=== PATIENT | male | born 1940 | race Caucasian/White ===

== ENCOUNTER → 2017-12-20 | Outpatient (CLI) | payer BC | END | disposition home or self-care (01) | LOC: C.LABOAKS 17:33 | PROVIDERS: ATTEND Nurse Practitioner | DX: E55.9 Vitamin D deficiency, unspecified (principal) ==

== ENCOUNTER → 2018-01-10 | Outpatient (CLI) | payer BC ==
[2018-01-10 13:15] LABS: BLOOD UREA NITROGEN 30 mg/dl (7-18); CALCIUM 9.2 mg/dl (8.5-10.1); CARBON DIOXIDE 28 mmol/L (21-32); CREATININE 1.64 mg/dl (0.60-1.40); GLUCOSE 118 mg/dl (70-99); POTASSIUM 4.5 mmol/L (3.5-5.1); SODIUM 139 mmol/L (136-145)
== END | disposition home or self-care (01) ==
LOC: C.LABOAKS 18:02
PROVIDERS: ATTEND Nurse Practitioner
DX: I10 Essential (primary) hypertension (principal)

== ENCOUNTER → 2018-03-28 | Outpatient (CLI) | payer BC ==
--- NOTE | 2018-03-28 10:38 | DIAGNOSTIC IMAGING REPORT ---
RENAL ULTRASOUND CLINICAL HISTORY: Renal vascular hypertension. Renal insufficiency. COMPARISON STUDY: None. TECHNIQUE: Sonography of the kidneys and the urinary bladder was performed. FINDINGS: Please note that the Doppler ultrasound will be reported separately. Exam is mildly compromised by suboptimal penetration. The right kidney measures 12.6 cm and the left measures 11 cm per there is a 1.1 cm right renal cyst. There is no hydronephrosis. No calculi or solid masses are identified by sonography. Neither ureteral jet was identified. IMPRESSION: 1. No hydronephrosis. 2. Minimal renal cortical thinning. Electronically signed by: Tirso Daugherty M.D. 03/28/2018 10:37 AM Dictated Date/Time: 03/28/2018 10:35 AM
--- NOTE | 2018-03-28 10:44 | DIAGNOSTIC IMAGING REPORT ---
DOPPLER ULTRASOUND OF THE RENAL ARTERIES CLINICAL HISTORY: Renovascular hypertension. COMPARISON STUDY: Renal ultrasound dated 03/28/2018. TECHNIQUE: Doppler sonography of the renal arteries was performed to assess renal artery stenosis. Images are reviewed in the transverse and longitudinal planes. FINDINGS: The kidneys appear normal in size and echotexture. There is no hydronephrosis. On the right, intrarenal arterial resistive indices range from 0.50 to 0.72. Intrarenal arterial waveforms are normal with brisk upstrokes. The right renal arterial waveform is normal, and velocities within the right renal artery measure up to 72 cm/sec. The right renal vein is patent. On the left, intrarenal arterial resistive indices measure 1.0. Intrarenal arterial waveforms are normal with brisk upstrokes. The left renal arterial waveform is normal, and velocities within the left renal artery measure up to 134 cm/sec. The left renal vein is patent. The abdominal aorta is patent. Velocities within the abdominal aorta measure up to 119 cm/s. IMPRESSION: 1. There are no elevated velocities identified within the renal arteries to suggest renal artery stenosis. 2. There are elevated resistive indices identified in the left kidney as compared to the right. This is of indeterminant significance and may be artifactual, or could be seen in the setting of medical renal disease. Clinical correlation will be required. Electronically signed by: Maico Yee M.D. 03/28/2018 10:42 AM Dictated Date/Time: 03/28/2018 10:39 AM
== END | disposition home or self-care (01) ==
LOC: C.ULTR 09:18
PROVIDERS: ATTEND Internal Medicine Critical Care Medicine
DX: I15.0 Renovascular hypertension (principal); N28.9 Disorder of kidney and ureter, unspecified

== ENCOUNTER → 2018-04-04 | Outpatient (CLI) | payer BC ==
[2018-04-04 13:06] LABS: BASO % 0.6 %; BASO ABS # 0.04 K/uL (0-0.2); EOS % 3.4 %; EOS ABS # 0.25 K/uL (0-0.5); HEMATOCRIT 42.5 % (42-52); HEMOGLOBIN 14.5 g/dL (14.0-18.0); IG# 0.03 K/uL (0.00-0.02); LYMPH % 27.4 %; LYMPH ABS # 1.99 K/uL (1.2-3.4); MEAN CELL VOLUME 90.4 fL (80-100); MEAN CORPUSCULAR HEMOGLOBIN 30.9 pg (25-34); MEAN CORPUSCULAR HGB CONC 34.1 g/dl (32-36); MEAN PLATELET VOLUME 8.8 fL (7.4-10.4); MONO % 10.9 %; MONO ABS # 0.79 K/uL (0.11-0.59); NEUT % 57.3 %; NEUT ABS # 4.17 K/uL (1.4-6.5); PLATELET COUNT 215 K/uL (130-400); RED CELL DISTRIBUTION WIDTH CV 13.6 % (11.5-14.5); RED CELL DISTRIBUTION WIDTH SD 44.8 fL (36.4-46.3); WHITE BLOOD COUNT 7.27 K/uL (4.8-10.8)
[2018-04-04 13:38] LABS: HEMOGLOBIN A1C 5.9 % (4.5-5.6)
[2018-04-04 14:34] LABS: ALBUMIN 3.8 gm/dl (3.4-5.0); ALKALINE PHOSPHATASE 66 U/L (45-117); ALT/SGPT 32 U/L (12-78); AST/SGOT 23 U/L (15-37); BLOOD UREA NITROGEN 31 mg/dl (7-18); CALCIUM 8.7 mg/dl (8.5-10.1); CARBON DIOXIDE 24 mmol/L (21-32); CREATININE 1.61 mg/dl (0.60-1.40); GLUCOSE 99 mg/dl (70-99); POTASSIUM 4.4 mmol/L (3.5-5.1); SODIUM 137 mmol/L (136-145); TOTAL PROTEIN 7.8 gm/dl (6.4-8.2)
== END | disposition home or self-care (01) ==
LOC: C.LABOAKS 16:44
PROVIDERS: ATTEND Internal Medicine Critical Care Medicine
DX: E03.9 Hypothyroidism, unspecified (principal); E11.9 Type 2 diabetes mellitus without complications; I10 Essential (primary) hypertension; N28.9 Disorder of kidney and ureter, unspecified; D64.9 Anemia, unspecified

== ENCOUNTER 2024-01-24 12:27 | Observation (INO) ==
--- NOTE | 2024-01-24 13:06 | Emergency Department Note ---
Impression & Plan Precordial chest pain, Exertional chest pain, History of coronary artery disease, CRF (chronic renal failure) ED Provider Note NAME: JOSELITO TOURE AGE: 83 SEX: M : 1940 ARRIVES VIA: Ambulance INFORMANT: [Patient][family] ED PROVIDER(S): [Maico Cordova MD] CHIEF COMPLAINT: Cardiac assessment HISTORY OF PRESENT ILLNESS: The patient is an 83-year-old male who states that he has had ongoing issues with chest pressure. He was seen by cardiology over the last few years and was told that he has some minor blockages that did not require stenting or any type of cardiac surgery. The patient states that in the last 3 days, his symptoms have seemed worse. Any exertion causes him to feel discomfort across the chest. He feels fatigued. He has to sit down to feel better. The pain seems to resolve with rest. The patient denies sweating or pain radiation, there has been no shortness of breath. No cough or congestion. No fever. The patient states that he has in addition noticed some reflux symptoms and heartburn symptoms for the last 3 days, the heartburn seems constant. He has tried Nexium without relief. Because of his ongoing symptoms, he presents for evaluation. In route to the hospital, he was given 4 baby aspirin. He is currently asymptomatic. PMHx/PSHx/Social Hx: See Below PHYSICAL EXAM: GENERAL: Patient is in no acute distress. HEENT: No acute trauma, normocephalic atraumatic, mucous membranes moist, no nasal congestion. NECK: No stridor, no adenopathy, no meningismus, trachea is midline. LUNGS: Clear to auscultation bilaterally, no wheeze, no rhonchi, breath sounds equal. HEART: Without murmurs gallops or rubs, regular rate and rhythm. ABDOMEN: Soft, nontender, no peritonitis. EXTREMITIES: No cyanosis, full range of motion of all the joints without pain or difficulty. NEUROLOGIC: Oriented x 3, no acute motor or sensory deficits, no focal weakness. SKIN: No jaundice, no diaphoresis. DIFFERENTIAL DIAGNOSIS: Angina, NC, anemia, musculoskeletal pain, reflux, esophagitis, ulcer, among others. EMERGENCY DEPARTMENT PROCEDURES: MEDICAL DECISION MAKING: There is no leukocytosis. A very mild anemia was seen. There was a normal platelet count. No coagulopathy. There was renal insufficiency present but this appears baseline. No electrolyte abnormality in need of emergent correction. No concerning liver enzyme elevation. ECG showed a sinus rhythm with a first-degree AV block, no ST elevation. Cardiac enzyme testing x 1 is not consistent with acute cardiac injury. Chest x-ray did not show CHF or pneumonia. BNP was not elevated making CHF less likely. On exam, the patient was without complaints. His symptoms had resolved. He had received aspirin prior to arrival. The patient presents with exertional chest pain. He has presumed coronary disease and in the past has had an abnormal stress test. I do think the patient would be best served with a hospital stay and further cardiac workup. I did speak with cardiology. I did speak with the patient and his family at length. Case management and the on-call hospitalist were consulted. Prior/Outside records/notes reviewed: Today's EMS notes describing his presentation and transport to this hospital. ECG per my interpretation: Indication was chest pain. The ECG shows a sinus rhythm with a first-degree AV block. The rate is 63. PVCs are seen. There is no acute ST elevation. There is some nonspecific ST change. QTc was 403. Continuous Cardiac Monitoring per my interpretation: An order was placed for continuous cardiac monitoring. The monitor shows a rate of 67 with sinus rhythm with a first-degree block. Imaging/x-ray results per my interpretation: Chest x-ray shows cardiomegaly, no CHF or pneumonia or pneumothorax. Chronic Medical/Social conditions affecting care: Advanced age. Care/Management discussed with: Case management, the on-call hospitalist. [facility] cardiology- Dr. Camacho. Level of care consideration(s): After review of the information above and other included data: --I believe the patient requires escalation of care to admission DISPOSITION: Admission Past Med/Surg History Problem List PAC (premature atrial contraction) Fatigue Fecal incontinence Trochanteric bursitis, right hip CAD (coronary artery disease) Abnormal stress echocardiogram Chest heaviness Trochanteric bursitis, left hip Bilateral lumbar radiculopathy Degenerative disc disease, lumbar Sensorineural hearing loss (SNHL) of both ears COVID-19 virus antibody negative (Acute) Leg pain Right hip pain Lumbar facet joint syndrome (Chronic) Rotator cuff arthropathy of left shoulder (Chronic) Mild heartburn (Chronic) occassional Vitamin D deficiency Hyperlipidemia Hypertension Secondary hyperparathyroidism of renal origin 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 Helton Medical History PAC (premature atrial contraction) follows with Luiz Alvarado Anxiety and depression History of prostate cancer sx Acid reflux Sensorineural hearing loss (SNHL) of both ears Lumbar stenosis with neurogenic claudication Hypoglycemia no diabetes Osteoarthritis Hypothyroidism Sleep apnea CPAP Surgical History History of incision and drainage (~07/06/18) H/O shoulder surgery Hx of tonsillectomy History of colostomy reversal History of colostomy History of bilateral knee arthroplasty History of arthroplasty Hx of colonoscopy Hx of prostatectomy Family History Daughter Family history of diabetes mellitus Other No family history of adverse response to anesthesia Social History Smoking Status: Never smoker Second Hand Exposure: No; Do You Dip or Chew Tobacco: No; Hx Alcohol Use: Yes Alcohol type: beer Hx Substance Use: No Preferred Language: Irish Communication Ability: Effective Visual Impairment: Limited Hearing Ability: Normal Chip Washer Required: No Beliefs That Will Affect Care: None marital status: Current Living Situation: Spouse Feels Safe at Home: Yes Assistive Devices: CPAP, Denture - Upper, Denture - Lower and Glasses Allergies Allergies Allergy/AdvReac Type Severity Reaction Status Date / Time MARILEE Inhibitors AdvReac Mild cough Verified 01/24/24 14:23 Home Meds Home Medications Medication Instructions Recorded Confirmed atorvastatin 20 mg tablet (Lipitor) 20 mg PO QPM 05/15/18 01/24/24 donepezil 10 mg tablet (Aricept) 10 mg PO HS 05/15/18 01/24/24 esomeprazole magnesium 20 mg 20 mg PO DAILY PRN Heartburn 05/15/18 01/24/24 capsule,delayed release (Nexium) levothyroxine 50 mcg tablet 50 mcg PO QAM 05/15/18 01/24/24 (Synthroid) aspirin 81 mg tablet,delayed 81 mg PO QPM 06/03/21 06/04/24 release acetaminophen 500 mg tablet 1,000 mg PO QID PRN Pain 04/14/22 01/24/24 (Tylenol Extra Strength) amlodipine 5 mg tablet 7.5 mg PO QAM 09/09/22 01/24/24 fluoxetine 40 mg capsule 40 mg PO DAILY 01/10/24 01/24/24 cholecalciferol (vitamin D3) 125 125 mcg PO 3XWK 01/24/24 01/24/24 mcg (5,000 unit) tablet (Vitamin D3) meloxicam 15 mg tablet 15 mg PO QPM 01/24/24 01/24/24 Previous Rx's Medication Instructions Recorded losartan 100 mg tablet 100 mg PO QPM #90 tabs 06/22/21 nitroglycerin 0.4 mg sublingual 0.4 mg sublingual Q5M PRN chest 03/22/22 tablet (Nitrostat) pain #25 tabs Results & Data (ED) Vital Signs Vital Signs - 24 hr 01/24/24 11:57 01/24/24 12:37 01/24/24 12:49 Temperature 36.6 C Temperature Source Oral Pulse Rate 67 Respiratory Rate 14 Respiratory Depth Normal Blood Pressure 148/65 H Blood Pressure Mean 92 Pulse Oximetry 97 96 Oxygen Delivery Method Room Air Room Air Sepsis Recent Fever Within 48 Hours No Sepsis New/Unexplained Change in Mental Status N/A Sepsis Action Taken by Nursing No Action Required 01/24/24 13:08 Temperature Temperature Source Pulse Rate 61 Respiratory Rate Respiratory Depth Blood Pressure Blood Pressure Mean Pulse Oximetry Oxygen Delivery Method Sepsis Recent Fever Within 48 Hours Sepsis New/Unexplained Change in Mental Status Sepsis Action Taken by [facility] Medications Current Medication List: was personally reviewed by me Laboratory Data Attestation: I reviewed the patient's lab results. 01/24/24 12:44 01/24/24 12:44 Lab Results 01/24/24 Range/Units 12:44 WBC 9.93 (4.8-10.8) K/ul RBC 4.41 L (4.70-6.10) M/uL Hgb 13.2 L (14.0-18.0) g/dl Hct 39.2 L (42.0-52.0) % MCV 88.9 (80.0-100.0) fL MCH 29.9 (25.0-34.0) pg MCHC 33.7 (32.0-36.0) g/dL RDW Std Deviation 43.3 (36.4-46.3) fL RDW Coeff of Heather 13.3 (11.5-14.5) % Plt Count 234 (130-400) K/uL MPV 8.5 L (9.4-12.4) fL Immature Gran % (Auto) 0.4 % Neut % (Auto) 70.1 % Lymph % (Auto) 16.7 % [place] % (Auto) 10.2 % Eos % (Auto) 1.8 % Baso % (Auto) 0.8 % Neut # (Auto) 6.96 H (1.40-6.50) K/uL Lymph # (Auto) 1.66 (1.20-3.40) K/uL [place] # (Auto) 1.01 H (0.11-0.59) K/uL Eos # (Auto) 0.18 (0.00-0.50) K/uL Baso # (Auto) 0.08 (0.00-0.20) K/uL Immature Gran # (Auto) 0.04 (0.01-0.20) K/uL PT 10.7 (9.0-12.0) Seconds INR 1.0 (0.9-1.1) APTT 25 (21-31) Seconds PTT Ratio 0.9 Sodium 135 L (136-145) mmol/L Potassium 4.7 (3.5-5.1) mmol/L Chloride 106 (98-107) mmol/L Carbon Dioxide 22 (21-32) mmol/L Anion Gap 7 (3-11) BUN 31 H (6-23) mg/dl Creatinine 1.71 H (0.6-1.4) mg/dl Est Cr Clr Drug Dosing 30.9 ml/min Est GFR ( Amer) 41.4 ml/min Est GFR (Non-Af Amer) 35.7 ml/min BUN/Creatinine Ratio 18.1 (10-20) Glucose 108 H (70-99(Fasting)) mg/dl Calcium 9.3 (8.6-10.3) mg/dl Magnesium 1.9 (1.7-2.4) mg/dl Total Bilirubin 0.3 (0.2-1.0) mg/dl AST 22 (13-39) U/L ALT 21 (7-52) U/L Alkaline Phosphatase 53 (34-104) U/L Troponin I High Sens 17.8 (0-20) pg/ml B-Natriuretic Peptide 79 (0-100) pg/ml Total Protein 7.1 (6.0-8.3) gm/dl Albumin 4.2 (3.4-5.0) gm/dl Globulin 2.9 (2.5-4.0) gm/dl Albumin/Globulin Ratio 1.4 (0.9-2) Imaging Data Radiologist's Impression: Chest X-Ray 01/24/24 12:46 XR chest 1V portable HISTORY: Dyspnea COMPARISON: Chest 06/17/2022. FINDINGS: No pneumothorax. No pleural effusions. No focal lung consolidations to suggest a pneumonia. No evidence for pulmonary edema. The heart remains mildly enlarged. Calcifications within the aortic knob. Bilateral total shoulder arthroplasties again noted. IMPRESSION: No significant change compared to the prior study. No acute process. ACT 112: Negative or not required by law. Electronically signed by: Jono Contreras M.D. 01/24/2024 1:45 PM Discharge Plan Visit Data Chief Complaint: Cardiac Assessment Stated Complaint: CHEST PAIN ED Provider: Maico Cordova Discharge Problem: Precordial chest pain, Exertional chest pain, History of coronary artery disease, CRF (chronic renal failure) Patient Disposition: Admitted As Inpatient Condition: Good Forms Stand Alone Forms: My [facility] [place] Prescriptions Prescriptions: No Action losartan 100 mg tablet 100 mg PO QPM Qty: 90 3RF acetaminophen [Tylenol Extra Strength] 500 mg tablet 1,000 mg PO QID PRN (Reason: Pain) nitroglycerin [Nitrostat] 0.4 mg tablet, sublingual 0.4 mg sublingual Q5M PRN (Reason: chest pain) Qty: 25 3RF Rx Instructions: Place 1 tablet sublingually every 5 minutes as needed for chest pain. If chest pain does not resolve by the 3rd dose, call 911. amlodipine 5 mg tablet 7.5 mg PO QAM fluoxetine 40 mg capsule 40 mg PO DAILY atorvastatin [Lipitor] 20 mg Tablet 20 mg PO QPM donepezil [Aricept] 10 mg Tablet 10 mg PO HS levothyroxine [Synthroid] 50 mcg Tablet 50 mcg PO QAM esomeprazole magnesium [Nexium] 20 mg Capsule,Delayed Release(Dr/Ec) 20 mg PO DAILY PRN (Reason: Heartburn) aspirin 81 mg Tablet,Delayed Release (Dr/Ec) 81 mg PO QPM meloxicam 15 mg tablet 15 mg PO QPM cholecalciferol (vitamin D3) [Vitamin D3] 125 mcg (5,000 unit) Tablet 125 mcg PO 3XWK Rx Instructions: Mon/Wed/Fri Referrals Referrals: Reed Gaitan MD [Primary Care Provider] - Discharge Problem: CRF (chronic renal failure) Qualifiers: Chronic kidney disease stage: unspecified stage Qualified Code(s): N18.9 - Chronic kidney disease, unspecified
[2024-01-24 13:16] LABS: Basophils # (auto) 0.08 K/uL (0.00-0.20); Basophils % (auto) 0.8 %; Eosinophils # (auto) 0.18 K/uL (0.00-0.50); Eosinophils % (auto) 1.8 %; Hematocrit (blood only) 39.2 % (42.0-52.0); Hemoglobin 13.2 g/dl (14.0-18.0); Immature Granulocytes # (auto) 0.04 K/uL (0.01-0.20); Immature Granulocytes % (auto) 0.4 %; Lymphocytes # (auto) 1.66 K/uL (1.20-3.40); Lymphocytes % (auto) 16.7 %; Mean Corpuscular Hemoglobin 29.9 pg (25.0-34.0); Mean Corpuscular Hgb Conc 33.7 g/dL (32.0-36.0); Mean Corpuscular Volume 88.9 fL (80.0-100.0); Mean Platelet Volume 8.5 fL (9.4-12.4); Monocytes # (auto) 1.01 K/uL (0.11-0.59); Monocytes % (auto) 10.2 %; Neutrophils # (auto) 6.96 K/uL (1.40-6.50); Neutrophils % (auto) 70.1 %; Platelet Count 234 K/uL (130-400); RDW Coefficient of Variation 13.3 % (11.5-14.5); RDW Standard Deviation 43.3 fL (36.4-46.3); Red Blood Count 4.41 M/uL (4.70-6.10); White Blood Count 9.93 K/ul (4.8-10.8)
[2024-01-24 13:25] LABS: Albumin Globulin Ratio 1.4 (0.9-2); Albumin Level 4.2 gm/dl (3.4-5.0); BUN Creatinine Ratio 18.1 (10-20); Bilirubin,Total 0.3 mg/dl (0.2-1.0); Calcium 9.3 mg/dl (8.6-10.3); Creatinine Clr Calc Pharmacy 30.9 ml/min; Est GFR (African American) 41.4 ml/min; Est GFR (Non-African American) 35.7 ml/min; Globulin 2.9 gm/dl (2.5-4.0); Magnesium 1.9 mg/dl (1.7-2.4); Potassium 4.7 mmol/L (3.5-5.1); Total Protein 7.1 gm/dl (6.0-8.3)
[2024-01-24 13:30] LABS: Partial Thromboplastin Ratio 0.9; Partial Thromboplastin Time 25 Seconds (21-31); Prothrombin Time 10.7 Seconds (9.0-12.0); Troponin I High Sensitivity 17.8 pg/ml (0-20)
--- NOTE | 2024-01-24 13:46 | XRay Report ---
XR chest 1V portable HISTORY: Dyspnea COMPARISON: Chest 06/17/2022. FINDINGS: No pneumothorax. No pleural effusions. No focal lung consolidations to suggest a pneumonia. No evidence for pulmonary edema. The heart remains mildly enlarged. Calcifications within the aortic knob. Bilateral total shoulder arthroplasties again noted. IMPRESSION: No significant change compared to the prior study. No acute process. ACT 112: Negative or not required by law. Electronically signed by: Jono Contreras M.D. 01/24/2024 1:45 PM
--- NOTE | 2024-01-24 14:23 | History & Physical Report ---
Date of Service January 24, 2024 Assessment & Plan (1) Unstable angina: Plan: Ongoing exertional chest pressure, with an acute exacerbation x 3 days Troponin WNL x 2 ECG revealed sinus rhythm with first-degree AV block at 60 bpm Continue aspirin daily Would discuss with patient about reintroducing beta-newton Continuous telemetry monitoring Hx of abnormal stress echocardiogram in 2021 Cardiology consulted for potential catheterization A.m. CBC, BMP, mag (2) Stage 3b chronic kidney disease: Plan: BUN 31, creatinine 1.71 (1.61), EGFR 35.7 on arrival Patient was recently started on meloxicam for gout related pain; will hold for now Hold losartan given CrCl ~30; okay to restart pending a.m. BMP/BP (3) Hypertension: Plan: Continue amlodipine Hold losartan (4) Hyperlipidemia: Plan: Continue atorvastatin (5) Mild heartburn: Plan: Continue Nexium or pantoprazole equivalent as needed (6) Sleep apnea: Plan: CPAP at bedtime Plan [facility]: [facility] Full [facility] Heart healthy diet VTE PPx: SCDs (hold chemical DVT PPx in the setting of potential cath) History of Present Illness Chief Complaint: Cardiac Assessment Primary Care Provider: Reed Gaitan MD Cristian is an 83-year-old male with PMH of HTN, HLD, stage III CKD, secondary hyperparathyroidism of renal origin, PACs, CAD, and abnormal stress echocardiogram. He presented for an acute worsening of chest pressure, anxiety, and heartburn x 3 days. Patient reports that this exertional chest heaviness has been ongoing for a long period of time, but was acutely exacerbated and worsening since Sunday 01/21. It is now occurring with any sort of activity; previously was occurring with going up steps and long walks, but then started to occur while doing simple tasks such as making breakfast or washing dishes. Patient denies SOB and chest pain, but describes it as discomfort; a "heaviness"/"fullness". No radiation to the back, shoulders, or arms. The heaviness is mainly substernal with some radiation towards the throat. Sitting down alleviates the chest pressure within a couple minutes. Patient also notes that he has been having worse indigestion recently, but he tried taking Nexium the past couple days and this did not help. He denies that the pressure is positional, he notes it feels better when he sits upright. Associated symptoms include increased anxiety and feeling unsteady on his feet. Patient took all of his regular morning medications today; the only recent change in medication was that he recently started meloxicam 50 mg after dinner for pain associated with gout. No PMH of LA, CVA, or cardiac history. Patient was previously on beta- blockers (Bystolic) but this was stopped due to side effects. No falls, fainting, or recent injury/trauma to the chest wall. Patient uses a cane occasionally for ambulation. He denies smoking, tobacco use, and alcohol use. Patient is mildly hypertensive at 148/65 at time of admission; vitals otherwise stable. ED Course: ASA 324mg en route ROS: Patient endorses unsteady on feet, and exertional chest pressure (feeling of "fullness"). Patient denies fever, chills, night-sweats, dizziness, lightheadedness, LOBO, changes in vision, chest pain, chest palpaitations, SOB at rest or with exertion, pleuritic CP, cough, abdominal pain, N/V/D, changes in urinary or bowel habits, or N/T/pain in the arms or legs. Allergies Allergy/AdvReac Type Severity Reaction Status Date / Time MARILEE Inhibitors AdvReac Mild cough Verified 01/24/24 14:23 Home Medications Medication Instructions Recorded Confirmed Type atorvastatin 20 mg tablet (Lipitor) 20 mg PO QPM 05/15/18 01/24/24 History donepezil 10 mg tablet (Aricept) 10 mg PO HS 05/15/18 01/24/24 History esomeprazole magnesium 20 mg 20 mg PO DAILY PRN Heartburn 05/15/18 01/24/24 Hi story capsule,delayed release (Nexium) levothyroxine 50 mcg tablet 50 mcg PO QAM 05/15/18 01/24/24 History (Synthroid) aspirin 81 mg tablet,delayed 81 mg PO QPM 01/22/21 01/24/24 History release losartan 100 mg tablet 100 mg PO QPM #90 tabs 06/22/21 01/24/24 Rx nitroglycerin 0.4 mg sublingual 0.4 mg sublingual Q5M PRN chest 03/22/22 01/24/24 Rx tablet (Nitrostat) pain #25 tabs acetaminophen 500 mg tablet 1,000 mg PO QID PRN Pain 04/14/22 01/24/24 History (Tylenol Extra Strength) amlodipine 5 mg tablet 7.5 mg PO QAM 09/09/22 01/24/24 History fluoxetine 40 mg capsule 40 mg PO DAILY 01/10/24 01/24/24 History cholecalciferol (vitamin D3) 125 125 mcg PO 3XWK 01/24/24 01/24/24 History mcg (5,000 unit) tablet (Vitamin D3) meloxicam 15 mg tablet 15 mg PO QPM 01/24/24 01/24/24 History Past Med/Surg History Problem List (Updated 01/24/24 @ 15:18 by Jono Olsen PA-C) Sleep apnea CPAP Unstable angina PAC (premature atrial contraction) Fatigue Fecal incontinence Trochanteric bursitis, right hip CAD (coronary artery disease) Abnormal stress echocardiogram Chest heaviness Trochanteric bursitis, left hip Bilateral lumbar radiculopathy Degenerative disc disease, lumbar Sensorineural hearing loss (SNHL) of both ears COVID-19 virus antibody negative (Acute) Leg pain Right hip pain Lumbar facet joint syndrome (Chronic) Rotator cuff arthropathy of left shoulder (Chronic) Mild heartburn (Chronic) occassional Vitamin D deficiency Hyperlipidemia Hypertension Secondary hyperparathyroidism of renal origin 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 Helton Medical History PAC (premature atrial contraction) follows with Luiz Alvarado Anxiety and depression History of prostate cancer sx Acid reflux Sensorineural hearing loss (SNHL) of both ears Lumbar stenosis with neurogenic claudication Hypoglycemia no diabetes Osteoarthritis Hypothyroidism Sleep apnea CPAP Surgical History History of incision and drainage (~07/06/18) H/O shoulder surgery Hx of tonsillectomy History of colostomy reversal History of colostomy History of bilateral knee arthroplasty History of arthroplasty Hx of colonoscopy Hx of prostatectomy Family History Daughter Family history of diabetes mellitus Other No family history of adverse response to anesthesia Social History Smoking Status: Never smoker Second Hand Exposure: No; Do You Dip or Chew Tobacco: No; Hx Alcohol Use: Yes Alcohol type: beer Hx Substance Use: No Preferred Language: Maltese Communication Ability: Effective Visual Impairment: Limited Hearing Ability: Normal Inspector Plug Seam Required: No Beliefs That Will Affect Care: None marital status: Current Living Situation: Spouse Feels Safe at Home: Yes Assistive Devices: CPAP, Denture - Upper, Denture - Lower and Glasses Review of Systems Review of Systems: See HPI above Physical Exam Physical Exam: General: no acute distress; pleasant affect; anxious; non-toxic appearing; well- nourished; cooperative; SpO2 96% on RA HEENT: normocephalic, atraumatic; no scleral icterus; PERRLA; moist mucus membrane; vision and hearing grossly intact Neck: supple; no lymphadenopathy; trachea midline Skin: warm, dry without signs of tenting; no cyanosis; no rashes, bruising, lesions, or erythema noted CV: chest wall NTP; RRR; S1/S2 normal; no murmurs/rubs/gallops; pulses intact and symmetric at radial, DP, and PT Lungs: no acute respiratory distress; symmetrical chest wall expansion; clear breath sounds across all lung rodríguez w/o adventitious sounds; no wheezing ABD: Soft, NTP; BS present; no rebound/guarding; no distention MSK: no tics or fasciculations; no edema noted in the LEs b/l, nonerythematous Neuro: A&Ox3; normal mood and affect; fluent speech; no focal deficits; sensation grossly intact in the LEs b/l Results & Data Results & Data Vital Signs (Past 12 Hours) Vital Signs Temp Pulse Resp BP Pulse Ox O2 Del Method 01/24/24 13:08 61 01/24/24 12:49 96 Room Air 01/24/24 12:37 148/65 H 01/24/24 11:57 36.6 C 67 14 97 Room Air Laboratory Results Abnormal lab results 01/24/24 Range/Units 12:44 RBC 4.41 L (4.70-6.10) M/uL Hgb 13.2 L (14.0-18.0) g/dl Hct 39.2 L (42.0-52.0) % MPV 8.5 L (9.4-12.4) fL Neut # (Auto) 6.96 H (1.40-6.50) K/uL Davidson # (Auto) 1.01 H (0.11-0.59) K/uL Sodium 135 L (136-145) mmol/L BUN 31 H (6-23) mg/dl Creatinine 1.71 H (0.6-1.4) mg/dl Glucose 108 H (70-99(Fasting)) mg/dl Diagnostic Findings Chest X-Ray 01/24/24 12:46 XR chest 1V portable HISTORY: Dyspnea COMPARISON: Chest 06/17/2022. FINDINGS: No pneumothorax. No pleural effusions. No focal lung consolidations to suggest a pneumonia. No evidence for pulmonary edema. The heart remains mildly enlarged. Calcifications within the aortic knob. Bilateral total shoulder arthroplasties again noted. IMPRESSION: No significant change compared to the prior study. No acute process. ACT 112: Negative or not required by law. Electronically signed by: Jono oCntreras M.D. 01/24/2024 1:45 PM ECG Additional Comments: ECG revealed sinus rhythm with first-degree AV block with occasional PVCs at 63 bpm; QTc 403 Code Status & VTE Plan Code Status Full code VTE Prophylaxis Plan VTE Prophylaxis will be ordered: Yes PG Care Time/CCT Total # of Minutes Spent Total Time Spent with Patient: Total time spent is greater than 50% in coordination of care (as documented) at patient's floor/unit and/or counseling patient: Coding [place] [address] INT INP/OBS CARE 3/75MIN Patient Type Established Medical Decision Making High Complexity Diagnoses Unstable angina I20.0 Stage 3b chronic kidney disease N18.32 Hypertension, unspecified type I10 Hypertension type: unspecified Mixed hyperlipidemia E78.2 Hyperlipidemia type: mixed hyperlipidemia Mild heartburn R12 Sleep apnea G47.30 (3) Hypertension Hypertension type: unspecified Qualified Code(s): I10 - Essential (primary) hypertension (4) Hyperlipidemia Hyperlipidemia type: mixed hyperlipidemia Qualified Code(s): E78.2 - Mixed hyperlipidemia
[2024-01-24] MEDS ORDERED: PANTOprazole 40 MG TAB PO PRN (17:07)
[2024-01-24] MEDS ORDERED: MELATONIN 3 MG TAB PO PRN (17:07)
[2024-01-24] MEDS: DONEPEZIL HCL 10 MG TAB PO SCH (20:22)
[2024-01-24] MEDS: ATORVASTATIN 20 MG TAB PO SCH (20:22)
[2024-01-24] MEDS: ASPIRIN 81 MG ECTAB PO SCH (20:22)
[2024-01-24] MEDS: ACETAMINOPHEN 325 MG TAB PO PRN (21:20)
[2024-01-25] MEDS: LEVOTHYROXINE SODIUM 50 MCG TABLET PO SCH (06:05)
[2024-01-25 07:50] LABS: Basophils # (auto) 0.06 K/uL (0.00-0.20); Basophils % (auto) 0.7 %; Eosinophils % (auto) 2.4 %; Hematocrit (blood only) 38.2 % (42.0-52.0); Hemoglobin 12.8 g/dl (14.0-18.0); Immature Granulocytes # (auto) 0.02 K/uL (0.01-0.20); Immature Granulocytes % (auto) 0.2 %; Lymphocytes % (auto) 19.1 %; Mean Corpuscular Hemoglobin 29.7 pg (25.0-34.0); Mean Corpuscular Hgb Conc 33.5 g/dL (32.0-36.0); Mean Corpuscular Volume 88.6 fL (80.0-100.0); Mean Platelet Volume 8.5 fL (9.4-12.4); Monocytes # (auto) 0.79 K/uL (0.11-0.59); Monocytes % (auto) 9.4 %; Neutrophils % (auto) 68.2 %; Platelet Count 233 K/uL (130-400); RDW Coefficient of Variation 13.3 % (11.5-14.5); RDW Standard Deviation 43.6 fL (36.4-46.3); Red Blood Count 4.31 M/uL (4.70-6.10); White Blood Count 8.37 K/ul (4.8-10.8)
[2024-01-25 07:58] LABS: BUN Creatinine Ratio 16.1 (10-20); Creatinine Clr Calc Pharmacy 33.6 ml/min; Est GFR (African American) 38.9 ml/min; Est GFR (Non-African American) 33.6 ml/min; Potassium 4.6 mmol/L (3.5-5.1)
[2024-01-25] MEDS: amLODIPine BESYLATE 5 MG TAB PO SCH (09:00)
--- NOTE | 2024-01-25 13:11 | Hospitalist Progress Note ---
Date of Service January 25, 2024 Assessment & Plan (1) Unstable angina: (2) Stage 3b chronic kidney disease: (3) Hypertension: (4) Hyperlipidemia: (5) Sleep apnea: (6) Mild heartburn: Plan 83 yo male PMHx HTN, HLD, CKD III, secondary hyperparathyroidism, PACs, presumed CAD, abnormal stress echo admitted for chest pain on exertion x 3 days #Unstable Angina Troponin WNL x 2 ASA, atorvastatin, amlodipine daily Abnormal stress echocardiogram in 2021 Cardiology consult #Stage 3b chronic kidney disease: Cr 1.8, GFR 33.6 Recent NSAID use Losartan held #Hypertension: amlodipine Hold losartan #Hyperlipidemia: Continue atorvastatin #Mild heartburn: pantoprazole #Sleep apnea: CPAP HS Admission and Anticipated Discharge Date Admission Date: January 24, 2024 Supervising Physician Co-Signing Physician Notes I personally examined the patient and verified all urrutia points of history and exam, discussed case, and agree with decision making with Dr Gross Feels okay at rest. Pretty reliable that exertion is provoking of chest pain, not really ever without exertion. Seems to be able to do less and less. We discussed risks and benefits, but ultimately high probability of not being able to make much progress without a cast to better delineate blockages. Vitals noted, in general he is awake and alert pleasant no distress. HEENT normocephalic atraumatic mucous membranes moist. Breathing unlabored no accessory muscle use good effort. Skin shows no rashes no pallor or icterus. Neuro without focal deficits. Anginaanticipate left heart cath. Discussed carefully risks and benefits with his CKD, but given how low his ability to exert seems to be with his angina is a limiting factor, we felt that benefits outweigh the risks overall. Discussed that certainly this will also need to be a separate discussion with cardiology. Will appreciate their insights on this as well. Subjective Patient seen and evaluated at bedside this morning. No acute events overnight. No chest pain/SOB at rest. Review of Systems Review of Systems: reviewed, per HPI Physical Exam Physical Exam: Constitutional: well-appearing, no acute distress HEENT: no conjunctival injection CV: extremities well-perfused, no LE edema Resp: no increased work of breathing MSK: no gross deformities appreciated Skin: warm, dry, no rash appreciated Neuro: alert, oriented, no focal neurologic deficit appreciated Results & Data Results & Data Vital Signs (Past 12 Hours) Vital Signs Temp Pulse Pulse Resp BP Pulse Ox O2 Del Method 01/25/24 11:31 36.6 C 70 18 162/80 H 92 Room Air 01/25/24 07:43 36.6 C 59 L 18 169/74 H 95 Room Air 01/25/24 07:29 61 01/25/24 03:44 36.8 C 59 L 18 116/52 L 95 Room Air Resident Activity Tracking Resident Involvement: Resident Care Provided Care Provided: Adult Hospital Medicine (3) Hypertension Hypertension type: unspecified Qualified Code(s): I10 - Essential (primary) hypertension (4) Hyperlipidemia Hyperlipidemia type: mixed hyperlipidemia Qualified Code(s): E78.2 - Mixed hyperlipidemia
--- NOTE | 2024-01-25 14:19 | Post Anesthesia Assessment ---
Date of Service January 25, 2024 Post Sedation Assessment Vital Signs Temp Pulse Pulse Resp BP Pulse Ox O2 Del Method 01/25/24 13:43 98.2 F 64 18 153/84 H 95 Room Air 01/25/24 11:31 97.9 F 70 18 162/80 H 92 Room Air 01/25/24 07:43 97.9 F 59 L 18 169/74 H 95 Room Air 01/25/24 07:29 61 01/25/24 03:44 98.2 F 59 L 18 116/52 L 95 Room Air 01/24/24 23:08 61 18 119/60 96 CPAP 01/24/24 22:58 59 L 01/24/24 22:50 65 16 93 01/24/24 20:03 97.3 F L 53 L 18 162/73 H 97 Room Air 01/24/24 17:26 66 FiO2 01/25/24 13:43 01/25/24 11:31 01/25/24 07:43 01/25/24 07:29 01/25/24 03:44 01/24/24 23:08 01/24/24 22:58 01/24/24 22:50 21 01/24/24 20:03 01/24/24 17:26 Recovery Score Activity: Moves 4 extremities Respiration: Deep Breath/Cough Circulation: +/-20% PreAnes Value Consciousness: Fully Awake Oxygen Saturation: O2 needed for >90% Discharge Sedation Level of Care: Fast Track Phase II Post Sedation Plan On clinical assessment, the patient appears to have tolerated the sedation without complications. Patient is recovering as anticipated. Patient will continue to be monitored by nursing and may be discharged when sedation discharge criteria are met per below protocol. Upon Completions of procedure up to 15 minutes continue every 5 minute vital signs and the P.A.R. score; then discharge to a Phase I or Fast Track to Phase II per the following guidelines: * Discharge Patient to appropriate Phase II area if PAR is 8 or greater or return to pre- procedure baseline. The post - procedure orders will be as directed. * If PAR score is less than 8 or not return to pre-procedure baseline then patient will follow Phase I monitoring till PAR is reached for Phase II. The Phase I may be done in procedure room or may call to secure a Phase I area. * If naloxone or flumazenil are used for reversal, hold in Phase I for continued monitoring from when last reversal dose was given for a minimum of 60 minutes or longer pending the nurse and/or physician discretion of patient condition before discharge to Phase II. Please call the Sedation Physician to re-evaluate and complete post-note for discharge to Phase II area. Do NOT discharge from procedure sedation or Phase 1 until post- sedation evaluation note is complete by procedure /sedation MD Sedation Discharge Instructions to be given to the patient at discharge to home.
[2024-01-25] MEDS: HEPARIN (PORCINE) 1000 UNIT/ML 10 ML (CATH LAB USE ONLY) ONE (14:58)
[2024-01-25] MEDS: FLUoxetine HCL 20 MG CAP PO SCH (14:59)
[2024-01-25] MEDS: MIDAZOLAM HCL 1 MG/ML 2ML VIAL ONE (14:59)
[2024-01-25] MEDS: niCARdipine HCL INJ 2.5 MG/ML 10 ML AMP ONE (14:59)
[2024-01-25] MEDS: fentaNYL citrate PF 100 MCG/2 ML VIAL ONE (14:59)
[2024-01-25] MEDS: IODIXANOL (VISIPAQUE) 320 MG/ML 100ML IV ONE (14:59)
[2024-01-25] MEDS: NITROGLYCERIN/D5W 100MCG/ML 20ML SYR ONE (15:00)
--- NOTE | 2024-01-25 15:29 | Pre Anesthesia Assessment ---
Date of Service January 25, 2024 Pre Sedation Assessment Vital Signs Temp Pulse Pulse Resp BP Pulse Ox O2 Del Method 01/25/24 15:12 61 168/71 H 93 Room Air 01/25/24 13:43 98.2 F 64 18 153/84 H 95 Room Air 01/25/24 11:31 97.9 F 70 18 162/80 H 92 Room Air 01/25/24 07:43 97.9 F 59 L 18 169/74 H 95 Room Air 01/25/24 07:29 61 01/25/24 03:44 98.2 F 59 L 18 116/52 L 95 Room Air 01/24/24 23:08 61 18 119/60 96 CPAP 01/24/24 22:58 59 L 01/24/24 22:50 65 16 93 01/24/24 20:03 97.3 F L 53 L 18 162/73 H 97 Room Air 01/24/24 17:26 66 FiO2 01/25/24 15:12 01/25/24 13:43 01/25/24 11:31 01/25/24 07:43 01/25/24 07:29 01/25/24 03:44 01/24/24 23:08 01/24/24 22:58 01/24/24 22:50 21 01/24/24 20:03 01/24/24 17:26 Cardiovascular + regular rate Respiratory + respiratory effort normal Pre-Sedation Airway Assessment Smoking Status: Never smoker Hx Sleep Apnea: No Hx Difficult Intubation: No Short, Thick Neck: No Thyromental Distance: < 3.5 Finger Breadths Oral Cavity: + Dental Abnormalities Mallampati Class: III ASA: ASA3 Procedure Planning Contraindications for Sedation: none Current Medications Reviewed: Yes Notes The planned sedation has been discussed with the patient. Informed Consent was obtained. I have identified the patient, determined the appropriateness of sedation and have assessed the patient immediately prior to the procedure. All medicine(s) and interventions are by my order.
--- NOTE | 2024-01-25 15:41 | Cardiac Catheterization ---
[facility] Data: Research Anthropologist Cardiac Status Clinical evaluation leading to the procedure CAD Presenation: Unstable angina Diagnostic Physicians Name: Alexei Leung MD Closure Device Recommendations: CABG Cardiac Cath Procedure Full Procedure Date January 25, 2024 Pre-Procedure Diagnosis Pre-Procedure Diagnosis: Angina AUC Score AUC Score: 7 Post-Procedure Diagnosis Post-Procedure Diagnosis: Severe CAD Procedure(s) Performed Procedure(s) Performed: Coronary Angiography and Left Heart Cath Radiologist Chief Of Breast Imaging Alexei Leung MD Laborer Cheesemaking(s) Showers Estimated Blood Loss Estimated Blood Loss: 10 Medication(s) Medication(s): Fentanyl, Heparin, Lidocaine 1%, Nicardipine, Nitroglycerin and Versed Summary of Findings Indication: Accelerating angina Access: 6 Fr right radial artery Catheters: [place] Findings: LM -normal caliber, distal luminal irregularities. LAD -medium caliber, heavily calcified, 70% ostial 90+% mid stenosis. Distal vessel tapers prior to apex. Medium D1 calcified, 60% proximal stenosis. Circumflex -medium caliber, heavily calcified, 70% earlymid stenosis. Medium OM 2 without severe disease. RCA -dominant, heavily calcified, 90% ostial, 90% proximal, 100% mid chronic total occlusion. PDA fills retrograde via [id number] collaterals. LVEDP -10 Arterial Closure: TR band Summary: 1. Severe, heavily calcified multivessel coronary artery disease -90% ostial/proximal RCA, 100% mid RCA chronic total occlusion. PDA fills via [id number] collaterals 70% ostial, 90% mid LAD 70% earlymid circumflex 2. Normal intracardiac filling pressure Recommendations: Recommend consideration of CABG Maximize antianginal therapy Continued ASCVD risk factor modification Hemodynamics Rest Ao:: 150/54/93 Final Ao: 167/63/104 LV: 139/10 Recommendations Recommendations: CABG Specimens Specimens: None Radiation Exposure (mGy) 1016 Contrast (mls) 45 Anesthesia Moderate 7538-4530 Procedural Complication(s) None Disposition PCU I attest to the content of the Intraoperative Record and any orders documented therein. Any exceptions are noted below. [facility] Card Cath Procedure Codes Cardiac Catheterization Procedure 1: Cardiovascular Cath Procedures: 55238 Coronaries and LHC (+/-LV) Moderate Sedation Procedure 1: Sedation/Anesthesia: 08771 Mod Sedation by the same physician;Init15 Min Child Age 5 & Up PG Care Time/CCT Total # of Minutes Spent Total Time Spent with Patient: Total time spent is greater than 50% in coordination of care (as documented) at patient's floor/unit and/or counseling patient:
[2024-01-25] MEDS: OPTIRAY 350 ONE (16:10)
[2024-01-25] MEDS: SODIUM CHLORIDE 0.9% 1,000 ML IV SCH (16:50)
[2024-01-25] MEDS: ISOSORBIDE MONO EXTENDED REL 30 MG TABCR PO ONE (17:52)
--- NOTE | 2024-01-25 17:54 | Billing Data ---
Date of Service January 25, 2024 Coding Level of Care Code 36391 SUB INP/OBS CARE
[2024-01-25] MEDS: RANOLAZINE 500 MG ER TAB PO SCH (21:33)
--- NOTE | 2024-01-25 23:28 | Cardiology Consultation ---
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 HypertensionARB/CCB 3. Acute on chronic kidney diseasestage III 4. GERD 5. Hypothyroidism 6. OA/lumbar DDD Due to concern for accelerating angina patient underwent cardiac catheterization today which revealed complex, heavily calcified multivessel three-vessel disease. We discussed revascularization options. From an anatomy standpoint favor complete revascularization with CABG. With age, comorbidities further trial of medical management also reasonable consideration but suspect would still be limited on max antianginal therapy (has goal to return to hunting). High risk PCI of LAD could also be considered but would likely require atherectomy/intravascular lithotripsy. For now recommend: Return to PCU for further monitoring, IV hydration postcontrast Repeat echo Increase amlodipine to 10 mg daily, start Imdur 30 mg daily and Ranexa 500 mg twice daily Continue aspirin, statin Continue to hold losartan Patient plans to discuss options further with his family. Likely can be discharged in a.m. with outpatient follow-up. History of Present Illness Attending Physician: Fritz Foster DO History of Present Illness Mr. Infante is a very pleasant 83-year-old man seen today for concerns of accelerating angina. Has previously seen Luiz Alvarado for cardiac care. Seen for frequent PACs and presumed CAD in the setting of mildly abnormal stress (03/2022, mild mid inferoseptal hypokinesis, normal resting function, severe LVH). Recently seen by vascular medicine prior to possible fourth toe pressure amputation in the setting of hammertoe/slow healing ulcer. Arterial duplex at that time suggestive of only tibial/small vessel disease. Past medical history significant for hypertension, dyslipidemia, stage III CKD, GERD, osteoarthritis post bilateral TKAs, prostate cancer and lumbar DDD. With last seen by cardiology 08/2023 and reported gradual progression in exertional chest tightness, shortness of breath and reduced exercise tolerance. Was on amlodipine 7.5, losartan and trial of Ranexa recommended. Has not tried Ranexa. Admitted with 3 days of worsening chest heaviness/fullness and questionable heartburn symptoms. Reports chest symptoms occurring with basic activities around his home. Symptoms relieved with rest/sitting down. Prior Nexium has not helped with symptoms. Presenting ECG unchanged, HS TropI negative x 3. Social history: . Mason Crowe's father in law Allergies Allergy/AdvReac Type Severity Reaction Status Date / Time MARILEE Inhibitors AdvReac Mild cough Verified 01/24/24 14:23 Home Medications Medication Instructions Recorded Confirmed Type atorvastatin 20 mg tablet (Lipitor) 20 mg PO QPM 05/15/18 01/24/24 History donepezil 10 mg tablet (Aricept) 10 mg PO HS 05/15/18 01/24/24 History esomeprazole magnesium 20 mg 20 mg PO DAILY PRN Heartburn 05/15/18 01/24/24 History capsule,delayed release (Nexium) levothyroxine 50 mcg tablet 50 mcg PO QAM 05/15/18 01/24/24 History (Synthroid) aspirin 81 mg tablet,delayed 81 mg PO QPM 01/22/21 01/24/24 History release losartan 100 mg tablet 100 mg PO QPM #90 tabs 06/22/21 01/24/24 Rx nitroglycerin 0.4 mg sublingual 0.4 mg sublingual Q5M PRN chest 03/22/22 01/24/24 Rx tablet (Nitrostat) pain #25 tabs acetaminophen 500 mg tablet 1,000 mg PO QID PRN Pain 04/14/22 01/24/24 History (Tylenol Extra Strength) amlodipine 5 mg tablet 7.5 mg PO QAM 09/09/22 01/24/24 History fluoxetine 40 mg capsule 40 mg PO DAILY 01/10/24 01/24/24 History cholecalciferol (vitamin D3) 125 125 mcg PO 3XWK 01/24/24 01/24/24 History mcg (5,000 unit) tablet (Vitamin D3) meloxicam 15 mg tablet 15 mg PO QPM 01/24/24 01/24/24 History Patient History Medical History PAC (premature atrial contraction) follows with Luiz Alvarado Anxiety and depression History of prostate cancer sx Acid reflux Sensorineural hearing loss (SNHL) of both ears Lumbar stenosis with neurogenic claudication Hypoglycemia no diabetes Osteoarthritis Hypothyroidism Sleep apnea CPAP Surgical History History of incision and drainage (~07/06/18) H/O shoulder surgery Hx of tonsillectomy History of colostomy reversal History of colostomy History of bilateral knee arthroplasty History of arthroplasty Hx of colonoscopy Hx of prostatectomy Family History Daughter Family history of diabetes mellitus Other No family history of adverse response to anesthesia Social History Smoking Status: Never smoker Second Hand Exposure: No; Do You Dip or Chew Tobacco: No; Hx Alcohol Use: No Hx Substance Use: No Preferred Language: Nepali Communication Ability: Effective Visual Impairment: Limited Hearing Ability: Normal Art Specialist Required: No Beliefs That Will Affect Care: None marital status: Current Living Situation: Spouse Other Information That Helps Us Care for You: No Feels Safe at Home: Yes Safety Concerns: Feels Safe At This Time Assistive Devices: CPAP Physical Exam Physical Exam: General: Comfortable HEENT: Sclerae anicteric Lungs: Clear to auscultation bilaterally, no crackles or wheezes Cardiac: Regular rate and rhythm, no murmurs. Vascular: TR band in place Abdomen: Soft, nontender Extremities: Well perfused, no peripheral edema Neuro: Nonfocal Psych: Alert orient x3, normal affect and mood Results & Data Vital Signs (Past 12 Hours) Vital Signs Temp Pulse Pulse Resp BP BP Pulse Ox 01/25/24 23:12 826 H 17 91 01/25/24 20:04 97.7 F 62 19 165/93 H 94 01/25/24 18:00 63 16 148/77 H 01/25/24 17:30 60 19 94 01/25/24 17:30 170/77 H 01/25/24 17:07 01/25/24 17:00 70 18 184/89 H 94 01/25/24 16:39 74 18 95 01/25/24 16:31 157/89 H 01/25/24 16:30 60 14 96 01/25/24 16:27 63 22 94 01/25/24 16:27 165/77 H 01/25/24 16:15 69 19 01/25/24 16:09 58 L 14 165/77 H 01/25/24 16:01 58 L 01/25/24 16:00 97.9 F 01/25/24 15:54 57 L 12 98 01/25/24 15:53 164/77 H 01/25/24 15:28 61 14 161/70 H 95 01/25/24 15:12 61 168/71 H 93 01/25/24 13:43 98.2 F 64 18 153/84 H 95 01/25/24 11:31 97.9 F 70 18 162/80 H 92 Pulse Ox O2 Del Method O2 Del Method FiO2 01/25/24 23:12 21 01/25/24 20:04 Room Air 01/25/24 18:00 01/25/24 17:30 01/25/24 17:30 01/25/24 17:07 64 L Room Air 01/25/24 17:00 Room Air 01/25/24 16:39 01/25/24 16:31 01/25/24 16:30 01/25/24 16:27 Room Air 01/25/24 16:27 01/25/24 16:15 01/25/24 16:09 01/25/24 16:01 01/25/24 16:00 01/25/24 15:54 01/25/24 15:53 01/25/24 15:28 Room Air 01/25/24 15:12 Room Air 01/25/24 13:43 Room Air 01/25/24 11:31 Room Air PG Care Time/CCT Total # of Minutes Spent Total Time Spent with Patient: Total time spent is greater than 50% in coordination of care (as documented) at patient's floor/unit and/or counseling patient: Coding Level of Care Code 38729 INT INP/OBS CARE 3/75MIN Diagnoses Coronary artery disease of [place] artery of [place] heart with stable angina pectoris I25.118 Coronary Disease-Associated Artery/Lesion type: [place] artery [place] vs. transplanted heart: [place] heart Associated angina: with stable angina (1) CAD (coronary artery disease) Coronary Disease-Associated Artery/Lesion type: [place] artery [place] vs. transplanted heart: [place] heart Associated angina: with stable angina Qualified Code(s): I25.118 - Atherosclerotic heart disease of [place] coronary artery with other forms of angina pectoris
[2024-01-26 06:36] LABS: Basophils # (auto) 0.06 K/uL (0.00-0.20); Basophils % (auto) 0.6 %; Eosinophils # (auto) 0.19 K/uL (0.00-0.50); Eosinophils % (auto) 1.8 %; Hematocrit (blood only) 39.7 % (42.0-52.0); Hemoglobin 13.6 g/dl (14.0-18.0); Immature Granulocytes # (auto) 0.03 K/uL (0.01-0.20); Immature Granulocytes % (auto) 0.3 %; Lymphocytes # (auto) 1.61 K/uL (1.20-3.40); Lymphocytes % (auto) 15.2 %; Mean Corpuscular Hemoglobin 30.5 pg (25.0-34.0); Mean Corpuscular Hgb Conc 34.3 g/dL (32.0-36.0); Mean Platelet Volume 8.4 fL (9.4-12.4); Monocytes # (auto) 0.93 K/uL (0.11-0.59); Monocytes % (auto) 8.8 %; Neutrophils # (auto) 7.78 K/uL (1.40-6.50); Neutrophils % (auto) 73.3 %; Platelet Count 254 K/uL (130-400); RDW Coefficient of Variation 13.2 % (11.5-14.5); RDW Standard Deviation 42.8 fL (36.4-46.3); Red Blood Count 4.46 M/uL (4.70-6.10)
[2024-01-26 06:58] LABS: BUN Creatinine Ratio 20.3 (10-20); Calcium 8.9 mg/dl (8.6-10.3); Creatinine Clr Calc Pharmacy 39.1 ml/min; Est GFR (African American) 47.4 ml/min; Est GFR (Non-African American) 40.9 ml/min; Potassium 4.6 mmol/L (3.5-5.1)
[2024-01-26] MEDS: amLODIPine BESYLATE 5 MG TAB PO SCH (08:24)
[2024-01-26] MEDS: PANTOprazole 40 MG TAB PO SCH (08:24)
[2024-01-26] MEDS: ISOSORBIDE MONO EXTENDED REL 30 MG TABCR PO SCH (08:24)
--- NOTE | 2024-01-26 09:46 | Cardiology Progress Note ---
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 HypertensionARB/CCB/nitrate 3. Acute on chronic kidney diseasestage III 4. GERD 5. Hypothyroidism 6. OA/lumbar DDD Stable from a cardiac standpoint. No recurrent angina. Repeat echocardiogram reviewedLV function preserved, no significant valvular disease. Renal function stable From a cardiac standpoint okay with discharge today. Home on increased amlodipine to 10 mg daily, new Imdur 30 mg daily and Ranexa 500 mg twice daily Can resume losartan, would reduce to 50 mg daily He will monitor home blood pressures daily Continue aspirin, statin Will arrange outpatient consultation with [facility] cardiac surgery. Follow-up with me in 2 to 3 weeks Admission and Anticipated Discharge Date Admission Date: January 24, 2024 Subjective Feeling well this morning. No chest pain overnight. Telemetry reviewedno events. Review of Systems Review of Systems: All systems reviewed & are unremarkable except as noted in HPI & below Physical Exam Physical Exam: General: Comfortable HEENT: Sclerae anicteric Lungs: Clear to auscultation bilaterally, no crackles or wheezes Cardiac: Regular rate and rhythm, no murmurs. Vascular: Right radial artery access site with no ecchymosis, hematoma. Distal pulse and sensation intact. Abdomen: Soft, nontender Extremities: Well perfused, no peripheral edema Neuro: Nonfocal Psych: Alert orient x3, normal affect and mood Results & Data Vital Signs (Past 12 Hours) Vital Signs Temp Pulse Pulse Resp BP Pulse Ox O2 Del Method 01/26/24 08:36 98.4 F 58 L 17 161/76 H 93 Room Air 01/26/24 07:00 61 01/26/24 03:29 97.5 F L 78 18 132/64 95 Room Air 01/25/24 23:56 97.9 F 65 17 129/64 93 Room Air 01/25/24 23:12 826 H 17 91 01/25/24 21:59 61 FiO2 01/26/24 08:36 01/26/24 07:00 01/26/24 03:29 01/25/24 23:56 01/25/24 23:12 21 01/25/24 21:59 PG Care Time/CCT Total # of Minutes Spent Total Time Spent with Patient: Total time spent is greater than 50% in coordination of care (as documented) at patient's floor/unit and/or counseling patient: Coding Level of Care Code 60748 SUB INP/OBS CARE MIN Diagnoses Coronary artery disease of [place] artery of [place] heart with stable angina pectoris I25.118 Coronary Disease-Associated Artery/Lesion type: [place] artery [place] vs. transplanted heart: [place] heart Associated angina: with stable angina (1) CAD (coronary artery disease) Coronary Disease-Associated Artery/Lesion type: [place] artery [place] vs. transplanted heart: [place] heart Associated angina: with stable angina Qualified Code(s): I25.118 - Atherosclerotic heart disease of [place] coronary artery with other forms of angina pectoris
[2024-01-26] MEDS ORDERED: CALCIUM CARBONATE 500 MG CHEWABLE TAB PO ONE (11:25)
[2024-01-26] MEDS: FAMOTIDINE 40 MG TABLET PO ONE (11:36)
--- NOTE | 2024-01-26 13:28 | Discharge Summary ---
Date of Service January 26, 2024 Admission HPI Per Admitting Provider Cristian is an 83-year-old male with PMH of HTN, HLD, stage III CKD, secondary hyperparathyroidism of renal origin, PACs, CAD, and abnormal stress echocardiogram. He presented for an acute worsening of chest pressure, anxiety, and heartburn x 3 days. Patient reports that this exertional chest heaviness has been ongoing for a long period of time, but was acutely exacerbated and worsening since Sunday 01/21. It is now occurring with any sort of activity; previously was occurring with going up steps and long walks, but then started to occur while doing simple tasks such as making breakfast or washing dishes. Patient denies SOB and chest pain, but describes it as discomfort; a "heaviness"/"fullness". No radiation to the back, shoulders, or arms. The heaviness is mainly substernal with some radiation towards the throat. Sitting down alleviates the chest pressure within a couple minutes. Patient also notes that he has been having worse indigestion recently, but he tried taking Nexium the past couple days and this did not help. He denies that the pressure is positional, he notes it feels better when he sits upright. Associated symptoms include increased anxiety and feeling unsteady on his feet. Patient took all of his regular morning medications today; the only recent change in medication was that he recently started meloxicam 50 mg after dinner for pain associated with gout. No PMH of [place], CVA, or cardiac history. Patient was previously on beta- blockers (Bystolic) but this was stopped due to side effects. No falls, fainting, or recent injury/trauma to the chest wall. Patient uses a cane o ccasionally for ambulation. He denies smoking, tobacco use, and alcohol use. Patient is mildly hypertensive at 148/65 at time of admission; vitals otherwise stable. ED Course: ASA 324mg en route ROS: Patient endorses unsteady on feet, and exertional chest pressure (feeling of "fullness"). Patient denies fever, chills, night-sweats, dizziness, lightheadedness, LOBO, changes in vision, chest pain, chest palpaitations, SOB at rest or with exertion, pleuritic CP, cough, abdominal pain, N/V/D, changes in urinary or bowel habits, or N/T/pain in the arms or legs. Admission Exam Per Admitting Provider General: no acute distress; pleasant affect; anxious; non-toxic appearing; well- nourished; cooperative; SpO2 96% on RA HEENT: normocephalic, atraumatic; no scleral icterus; PERRLA; moist mucus membrane; vision and hearing grossly intact Neck: supple; no lymphadenopathy; trachea midline Skin: warm, dry without signs of tenting; no cyanosis; no rashes, bruising, lesions, or erythema noted CV: chest wall NTP; RRR; S1/S2 normal; no murmurs/rubs/gallops; pulses intact and symmetric at radial, DP, and PT Lungs: no acute respiratory distress; symmetrical chest wall expansion; clear breath sounds across all lung rodríguez w/o adventitious sounds; no wheezing ABD: Soft, NTP; BS present; no rebound/guarding; no distention MSK: no tics or fasciculations; no edema noted in the LEs b/l, nonerythematous Neuro: A&Ox3; normal mood and affect; fluent speech; no focal deficits; sensation grossly intact in the LEs b/l Principal Diagnosis Multi-vessel coronary disease Discharge Exam Constitutional: well-appearing, no acute distress HEENT: no conjunctival injection CV: extremities well-perfused, no LE edema Resp: no increased work of breathing MSK: no gross deformities appreciated Skin: warm, dry, no rash appreciated Neuro: alert, oriented, no focal neurologic deficit appreciated Discharge Data Allergies Allergy/AdvReac Type Severity Reaction Status Date / Time MARILEE Inhibitors AdvReac Mild cough Verified 01/24/24 14:23 Consultations 01/24/24 14:36 ED Decision to Admit Stat 01/24/24 17:07 Consult Cardiology Routine Procedures Performed Operation Date: 01/25/24 14:00 Actual Procedures p Cath, Left with Cors and Vent - Alexei Leung MD s Cineradiography w/Routine Exam - Alexei Leung MD Ordered Studies 01/25/24 13:23 CL Cath Imgs for PACS use only Routine Hospital Course (1) Unstable angina: (2) Stage 3b chronic kidney disease: (3) Hypertension: (4) Hyperlipidemia: (5) Sleep apnea: (6) Mild heartburn: Plan 83 yo male PMHx HTN, HLD, CKD III, secondary hyperparathyroidism, PACs, presumed CAD, abnormal stress echo admitted for chest pain on exertion x 3 days #Unstable Angina Troponin WNL x 2 ASA, atorvastatin, amlodipine daily Abnormal stress echocardiogram in 2021 Cardiac cath shows multi-vessel coronary dx Cardiology to coordinate consultation with Pattie ARMIJO surg Imdur 30mg daily, Ranexa 500mg BID added Amlodipine increased to 10mg daily #Stage 3b chronic kidney disease: Cr 1.8, GFR 33.6 Avoid NSAIDS Losartan restart at 50mg at discharge #Hypertension: amlodipine losartan restart at 50mg #Hyperlipidemia: Continue atorvastatin #Mild heartburn: pantoprazole continue home PPI at dc #Sleep apnea: CPAP HS Total Time Total Time Spent Total Time Spent (In Minutes): <30 Discharge Plan Discharge Items Patient Disposition: Home - Self-Care Reason For Visit: EXERTIONAL CHEST PRESSURE Discharge Diagnosis: Multi vessel coronary artery disease Condition on Discharge: Good Activity: Resume your previous activity Non-emergency contact: Primary Care Provider and Asset Protection Greeter Call non-emergency contact if: you have any medication questions and your symptoms worsen Follow-up/Referrals: Reed Gaitan MD [Primary Care Provider] - (I spoke with Lyndsey (nurse) with Dr. Gaitan's office and she states that she will reach out to the patient to schedule his appointment. I have made patient aware of this. ) Diet: Carb Consistent or DM2 and Heart Healthy Addtl Attending Provider Instructions: You were admitted to the hospital for increasing exercise intolerance/cardiac symptoms with activity. You recieved a cardiac catheterization to evaluate the arteries that supply blood to your heart. It was determined that the extent of your cardiac disease was such that stents will not be an option to open the narrowed or blocked arteries. You will need to be evaluated by a cardiothoracic surgeon for possible bypass surgery. Dr. Leung made some adjustments to your medications: please see below for new or changed medications sent to your pharmacy. A discharge summary will be sent to your primary care physician to ensure continuity of care. Please bring this discharge summary with you to your next office appointment so that your provider can review it at that time. Follow-up appointments: Make a follow-up appointment with your PCP within the next week. It is very important that you follow up with them shortly after discharge from the hospital. You should work with cardiology to set up evaluation for cardiac surgery. Keep all your follow-up appointments as already scheduled. If you cannot make an appointment, notify your provider. Medications: Your medication list has been reviewed and reconciled upon discharge to ensure accuracy and continuity of care. An updated list of all your medications is in cluded with your hospital discharge paperwork. Please review this list closely, and make note of any changes. We sent a new medication called ranolazine to your pharmacy. Take ranolazine (500mg) one tablet twice daily. We sent a new medication called isosorbide mononitrate to your pharmacy. Take isosorbide mononitrate (30mg) one tablet daily. We sent a new dose of the medication called losartan to your pharmacy. Take losartan (50mg) one tablet daily. We sent a new dose of the medication called amlodipine to your pharmacy. Take amlodipine (10mg) one tablet daily. YOU SHOULD AVOID ALL NSAID MEDICATIONS TO PROTECT YOUR HEART AND KIDNEYS. EXAMPLES INCLUDE Motrin/Advil (ibuprofen), Aleve (naproxen). If you have any issues filling these prescriptions, please call [phone] and ask to leave a message for Dr. Renaldo Gross. Take your medications as instructed; do not skip a dose of your medicines. Make sure all of your doctors know every medicine you are taking (including nujs-unu-ikvikwd medicines, vitamins, and supplements). Call your primary care provider before taking any new medicines (including mder-nnh-gqdfdkn medicines, vitamins, and supplements), because some of these may interact with your current medications, or may make your symptoms worse. Tell your primary care provider if you cannot afford your medications. 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 Pending Studies at Discharge: No Stand-Alone Forms: My [facility] [place] Medications and DC Order Prescriptions: New isosorbide mononitrate 30 mg Tablet Extended Release 24 Hr 30 mg PO QAM Qty: 30 0RF ranolazine 500 mg Tablet Extended Release 12 Hr 500 mg PO BID Qty: 60 0RF amlodipine 10 mg tablet 10 mg PO DAILY Qty: 30 0RF losartan 50 mg tablet 50 mg PO DAILY Qty: 30 0RF Continued acetaminophen [Tylenol Extra Strength] 500 mg tablet 1,000 mg PO QID PRN (Reason: Pain) nitroglycerin [Nitrostat] 0.4 mg tablet, sublingual 0.4 mg sublingual Q5M PRN (Reason: chest pain) Qty: 25 3RF Rx Instructions: Place 1 tablet sublingually every 5 minutes as needed for chest pain. If c hest pain does not resolve by the 3rd dose, call 911. fluoxetine 40 mg capsule 40 mg PO DAILY atorvastatin [Lipitor] 20 mg Tablet 20 mg PO QPM donepezil [Aricept] 10 mg Tablet 10 mg PO HS levothyroxine [Synthroid] 50 mcg Tablet 50 mcg PO QAM esomeprazole magnesium [Nexium] 20 mg Capsule,Delayed Release(Dr/Ec) 20 mg PO DAILY PRN (Reason: Heartburn) aspirin 81 mg Tablet,Delayed Release (Dr/Ec) 81 mg PO QPM meloxicam 15 mg tablet 15 mg PO QPM cholecalciferol (vitamin D3) [Vitamin D3] 125 mcg (5,000 unit) Tablet 125 mcg PO 3XWK Rx Instructions: Mon/Wed/Fri Discontinued losartan 100 mg tablet 100 mg PO QPM Qty: 90 3RF amlodipine 5 mg tablet 7.5 mg PO QAM Discharge Orders: Discharge Order (Routine); Ordered 01/26/24 Ordered By: Renaldo Gross Admission Data Admit Date/Time: 01/24/24 14:59 Attending Provider: Fritz Foster Admit Provider: Shaggy Kinney Primary Care Provider: Reed Gaitan Other Providers: Shaggy Kinney; Dat Camacho Other Interventions: Discharge Summary Assessment (RN) Last Done: 01/26/24 13:28 Supervising Physician Co-Signing Physician Notes I personally examined the patient and verified all urrutia points of history and exam, discussed case, and agree with decision making with Dr Gross Feels up to going home. He is going to follow-up in [place] to discuss bypass. Vitals noted, in general he is awake and alert pleasant no distress. HEENT normocephalic atraumatic mucous membranes moist. Breathing unlabored no accessory muscle use good effort. Skin shows no rashes no pallor or icterus. Neuro without focal deficits. Angina diffuse coronary artery disease. Discussed risks and benefits of bypass versus med management, and quite understandably he is going to proceed with discussing bypass with Nikki. Also discussed NSAID cessation for both his coronary disease and his CKD. Discussed utilizing CPAP. Resident Activity Tracking Resident Involvement: Resident Care Provided Care Provided: Adult [facility] Medicine
--- NOTE | 2024-01-26 16:02 | XCELERA ---
[id number] [id number]
--- NOTE | 2024-01-26 17:07 | Billing Data ---
Date of Service January 26, 2024 Coding Level of Care Code 29231 IN/OBS DISCH 30 MIN/LESS
--- NOTE | 2024-01-27 06:32 | Electrocardiogram Report ---
Test Reason : Blood Pressure : / mmHG Vent. Rate : 063 BPM Atrial Rate : 063 BPM P-R Int : 228 ms QRS Dur : 072 ms QT Int : 394 ms P-R-T Axes : 067 056 -04 degrees QTc Int : 403 ms Sinus rhythm with 1st degree A-V block with occasional Premature ventricular complexes Nonspecific T wave abnormality Abnormal ECG When compared with ECG of 17-JUN-2022 11:32, Premature ventricular complexes are now Present Premature atrial complexes are no longer Present Criteria for Inferior infarct are no longer Present Nonspecific T wave abnormality now evident in Lateral leads Confirmed by Dat Camacho ([id number]) on 01/27/2024 6:31:55 AM Referred By: Confirmed By:Dat Camacho
--- NOTE | 2024-01-28 06:16 | Electrocardiogram Report ---
Test Reason : Blood Pressure : / mmHG Vent. Rate : 062 BPM Atrial Rate : 062 BPM P-R Int : 230 ms QRS Dur : 090 ms QT Int : 432 ms P-R-T Axes : 045 008 -21 degrees QTc Int : 438 ms Sinus rhythm with 1st degree A-V block When compared with ECG of 24-JAN-2024 12:32, Premature ventricular complexes are no longer Present Confirmed by Dat Camacho ([id number]) on 01/28/2024 6:16:14 AM Referred By: REFERRED SELF Confirmed By:Dat Camacho
== END 2024-01-26 13:57 | disposition home or self-care (01) ==
LOC: 2N 12:27 → ED 12:27 → SUATTDRO 14:59 → 2N 17:11 → 2E 01-25 16:10
DX: I25.84 Coronary atherosclerosis due to calcified coronary lesion; N18.32 Chronic kidney disease, stage 3b; I25.110 Atherosclerotic heart disease of native coronary artery with unstable angina pectoris; I12.9 Hypertensive chronic kidney disease with stage 1 through stage 4 chronic kidney disease, or unspecified chronic kidney disease; Z79.82 Long term (current) use of aspirin; I25.82 Chronic total occlusion of coronary artery; E78.2 Mixed hyperlipidemia; M19.90 Unspecified osteoarthritis, unspecified site; G47.30 Sleep apnea, unspecified; K21.9 Gastro-esophageal reflux disease without esophagitis; Z79.899 Other long term (current) drug therapy; E03.9 Hypothyroidism, unspecified; I49.1 Atrial premature depolarization; M51.36 Other intervertebral disc degeneration, lumbar region; F41.9 Anxiety disorder, unspecified; Z88.8 Allergy status to other drugs, medicaments and biological substances; N25.81 Secondary hyperparathyroidism of renal origin

== ENCOUNTER 2024-02-24 12:05 | Observation (INO) ==
--- NOTE | 2024-02-24 12:20 | Emergency Department Note ---
Impression & Plan Chest pain, Abnormal EKG, Elevated troponin I level ED Provider Note NAME: JOSELITO TOURE AGE: 83 SEX: M : 1940 ARRIVES VIA: Ambulance INFORMANT: Patient, EMS ED PROVIDER(S): Artemio Araujo DO CHIEF COMPLAINT: Chest pain HPI: The patient is an 83-year-old male who is 1 week status post coronary artery bypass grafting surgery at [facility] who presented to the emergency department for chest pain. The patient had his postoperative course while he was in the hospital complicated with atrial fibrillation. He was noted to have atrial fibrillation by the prehospital personnel. The patient took his own nitroglycerin because of the chest discomfort. He then called 911. He received aspirin prior to arrival. The patient states the pain slowly improved. He describes it as a burning sensation almost like heartburn. He denies having any abdominal pain or back pain. He denies having any difficulty breathing at this time. The patient states that he has been compliant with his outpatient medications. ROS: See above HPI for pertinent positives & negatives. A total of 10 systems reviewed and were otherwise negative. PAST MEDICAL HISTORY: See Below PAST SURGICAL HISTORY: See Below FAMILY HISTORY: See Below SOCIAL HISTORY: See Below HOME MEDICATIONS: See Below ALLERGIES: See Below VITALS: See Below PHYSICAL EXAMINATION: GENERAL: The patient is awake and alert. He is somewhat anxious appearing. EYES: The conjunctivae are clear. The pupils are round and reactive. EARS, NOSE, MOUTH AND THROAT: The nose is without any evidence of any deformity. NECK: The neck is nontender and supple. RESPIRATORY: Normal respiratory effort is noted there is no evidence of wheezing rhonchi or rales CARDIOVASCULAR: Irregular heart sounds were noted to auscultation. There is no definite murmur. GASTROINTESTINAL: The abdomen is soft. Abdomen is nontender. MUSCULOSKELETAL/EXTREMITIES: There is no evidence of gross deformity full range of motion is noted in the hips and shoulders. SKIN: Trace pedal edema was noted bilaterally. Skin was warm and dry. Vein harvesting site was noted in the right lower extremity. There was ecchymosis on the inner right thigh. The postoperative site on the chest is healing well. There is no erythema drainage or dehiscence noted. NEUROLOGIC: Patient is awake alert and oriented x3 MEDICAL DECISION MAKING: The patient is an 83-year-old male who is status post coronary artery bypass grafting. He had three-vessel bypass. He is approximately 1 week status post this procedure. The patient presented to the emergency department for chest pain. The patient took nitroglycerin and was given aspirin prior to arrival by the prehospital personnel. I discussed patient's laboratory and radiographic studies with him. He does have some EKG changes which could be ischemia in nature but could also represent his post coronary artery bypass grafting tracing. I discussed his condition with the on-call [facility] hospitalist. Given his risk factors I do feel the patient would be a better candidate for inpatient management. Triage Nursing notes reviewed. Prior medical records reviewed Vital Signs: reviewed and remarkable for elevated blood pressure. Differential diagnosis: Cardiac ischemia, aortic dissection, pulmonary embolism, pneumothorax, pneumonia, pericarditis, myocarditis, esophageal rupture, GERD, cholecystitis, pancreatitis, musculoskeletal, as well as other pathologies. ER treatment provided: See below Diagnostics interpreted by me: ECG: EKG was obtained in the emergency department. My interpretation is sinus rhythm at 80 bpm. PAC was noted, high lateral T wave versions were noted. This was compared to a tracing from January 25, 2024. This was free coronary artery bypass grafting. The high lateral T wave versions are new compared to previous tracing. Cardiac Monitoring: An order was placed for continuous cardiac monitoring. The monitor shows a rate of 71 bpm with sinus rhythm. Laboratory studies: As stated above and show below. Imaging studies: See below. Radiographic imaging was reviewed by myself Consultation(s): I [facility] this [facility]. Past Med/Surg History Problem List (Updated 02/24/24 @ 16:13 by Park Mireles PA-C) Paroxysmal atrial fibrillation Elevated troponin I level (Acute) Abnormal EKG (Acute) Chest pain (Acute) Sleep apnea CPAP Unstable angina PAC (premature atrial contraction) Fatigue Fecal incontinence Trochanteric bursitis, right hip CAD (coronary artery disease) Abnormal stress echocardiogram Chest heaviness Trochanteric bursitis, left hip Bilateral lumbar radiculopathy Degenerative disc disease, lumbar Sensorineural hearing loss (SNHL) of both ears COVID-19 virus antibody negative (Acute) Leg pain Right hip pain Lumbar facet joint syndrome (Chronic) Rotator cuff arthropathy of left shoulder (Chronic) Mild heartburn (Chronic) occassional Vitamin D deficiency Hyperlipidemia Hypertension Secondary hyperparathyroidism of renal origin 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 Helton Medical History PAC (premature atrial contraction) follows with Luiz Alvarado Anxiety and depression History of prostate cancer sx Acid reflux Sensorineural hearing loss (SNHL) of both ears Lumbar stenosis with neurogenic claudication Hypoglycemia no diabetes Osteoarthritis Hypothyroidism Surgical History History of incision and drainage (~07/06/18) left shoulder H/O shoulder surgery L reverse total shoulder on 06/16/18 glidescope 3 #7.5 ETT used for intubation without issues Hx of tonsillectomy History of colostomy reversal History of colostomy 2/2 bowel perf during colonoscopy History of bilateral knee arthroplasty History of arthroplasty r shoulder/partial Hx of colonoscopy Hx of prostatectomy Family History Daughter Family history of diabetes mellitus Other No family history of adverse response to anesthesia Social History Smoking Status: Never smoker Second Hand Exposure: No; Do You Dip or Chew Tobacco: No; Tobacco Cessation Education Requested by Patient: No Hx Alcohol Use: No Hx Substance Use: No Preferred Language: Cantonese Portuguese Communication Ability: Effective Visual Impairment: Limited Hearing Ability: Normal Control Cabinet Assembler Required: Voice Beliefs That Will Affect Care: None marital status: Current Living Situation: Spouse Other Information That Helps Us Care for You: No Feels Safe at Home: Yes Safety Concerns: Feels Safe At This Time Assistive Devices: CPAP Allergies Allergies Allergy/AdvReac Type Severity Reaction Status Date / Time MARILEE Inhibitors AdvReac Mild cough Verified 01/24/24 14:23 Home Meds Home Medications Medication Instructions Recorded Confirmed atorvastatin 20 mg tablet (Lipitor) 20 mg PO QPM 05/15/18 01/24/24 donepezil 10 mg tablet (Aricept) 10 mg PO HS 05/15/18 01/24/24 levothyroxine 50 mcg tablet 50 mcg PO QAM 05/15/18 01/24/24 (Synthroid) aspirin 81 mg tablet,delayed 81 mg PO QPM 01/22/21 01/24/24 release acetaminophen 500 mg tablet 1,000 mg PO QID PRN Pain 04/14/22 01/24/24 (Tylenol Extra Strength) fluoxetine 40 mg capsule 40 mg PO DAILY 01/10/24 01/24/24 cholecalciferol (vitamin D3) 125 125 mcg PO 3XWK 01/24/24 01/24/24 mcg (5,000 unit) tablet (Vitamin D3) meloxicam 15 mg tablet 15 mg PO QPM 01/24/24 01/24/24 famotidine 20 mg tablet 20 mg PO DAILY 02/24/24 02/24/24 furosemide 40 mg tablet 40 mg PO DAILY 02/24/24 02/24/24 losartan 50 mg tablet 100 mg PO DAILY 02/24/24 potassium chloride 20 mEq 20 meq PO DAILY 02/24/24 02/24/24 tablet,extended release Previous Rx's Medication Instructions Recorded nitroglycerin 0.4 mg sublingual 0.4 mg sublingual Q5M PRN chest 03/22/22 tablet (Nitrostat) pain #25 tabs amlodipine 10 mg tablet 10 mg PO DAILY #30 tabs 01/26/24 Results & Data (ED) Vital Signs Vital Signs - 24 hr 02/24/24 12:18 02/24/24 12:18 02/24/24 12:18 Temperature 36.7 C Temperature Source Oral Pulse Rate 78 Pulse Rate [Right Finger] Pulse Rate from SpO2 Sensor Pulse Rhythm [Right Finger] Pulse Strength [Right Finger] Respiratory Rate 17 Respiratory Effort / Characteristics Non-Labored Spontaneous Respiratory Depth Normal Respiratory Pattern Regular Blood Pressure 145/63 H Blood Pressure [Left Arm] Blood Pressure Mean 90 Blood Pressure Mean [Left Arm] Blood Pressure Position [Left Arm] Pulse Oximetry 98 98 98 Oxygen Delivery Method Room Air Room Air Room Air Oxygen Flow Rate 0 Sepsis Recent Fever Within 48 Hours No Sepsis New/Unexplained Change in Mental Status N/A Sepsis Action Taken by Nursing No Action Required 02/24/24 13:23 02/24/24 14:00 02/24/24 14:09 Temperature Temperature Source Pulse Rate 72 71 Pulse Rate [Right Finger] 70 Pulse Rate from SpO2 Sensor 72 71 Pulse Rhythm [Right Finger] Regular Pulse Strength [Right Finger] Normal Respiratory Rate 17 15 18 Respiratory Effort / Characteristics Non-Labored Respiratory Depth Normal Respiratory Pattern Regular Blood Pressure 167/83 H Blood Pressure [Left Arm] 162/76 H Blood Pressure Mean 111 Blood Pressure Mean [Left Arm] 104 Blood Pressure Position [Left Arm] Lying Pulse Oximetry 96 94 95 Oxygen Delivery Method Room Air Oxygen Flow Rate Sepsis Recent Fever Within 48 Hours Sepsis New/Unexplained Change in Mental Status Sepsis Action Taken by Nursing 02/24/24 14:30 02/24/24 14:30 02/24/24 14:33 Temperature Temperature Source Pulse Rate 70 Pulse Rate [Right Finger] Pulse Rate from SpO2 Sensor 75 Pulse Rhythm [Right Finger] Pulse Strength [Right Finger] Respiratory Rate 17 Respiratory Effort / Characteristics Respiratory Depth Respiratory Pattern Blood Pressure 141/69 H 141/69 H Blood Pressure [Left Arm] Blood Pressure Mean 125 125 Blood Pressure Mean [Left Arm] Blood Pressure Position [Left Arm] Pulse Oximetry 96 Oxygen Delivery Method Oxygen Flow Rate Sepsis Recent Fever Within 48 Hours Sepsis New/Unexplained Change in Mental Status Sepsis Action Taken by Nursing 02/24/24 15:18 02/24/24 15:35 02/24/24 15:39 Temperature Temperature Source Pulse Rate 71 78 77 Pulse Rate [Right Finger] Pulse Rate from SpO2 Sensor 70 76 Pulse Rhythm [Right Finger] Pulse Strength [Right Finger] Respiratory Rate 15 13 Respiratory Effort / Characteristics Respiratory Depth Respiratory Pattern Blood Pressure Blood Pressure [Left Arm] Blood Pressure Mean Blood Pressure Mean [Left Arm] Blood Pressure Position [Left Arm] Pulse Oximetry 96 97 Oxygen Delivery Method Oxygen Flow Rate Sepsis Recent Fever Within 48 Hours Sepsis New/Unexplained Change in Mental Status Sepsis Action Taken by [facility] Medications Current Medication List: was personally reviewed by me Laboratory Data Attestation: I reviewed the patient's lab results. 02/24/24 12:15 02/24/24 12:15 Lab Results 02/24/24 02/24/24 Range/Units 12:15 14:25 WBC 11.99 H (4.8-10.8) K/ul RBC 3.87 L (4.70-6.10) M/uL Hgb 11.6 L (14.0-18.0) g/dl Hct 35.4 L (42.0-52.0) % MCV 91.5 (80.0-100.0) fL MCH 30.0 (25.0-34.0) pg MCHC 32.8 (32.0-36.0) g/dL RDW Std Deviation 47.9 H (36.4-46.3) fL RDW Coeff of Heather 14.3 (11.5-14.5) % Plt Count 385 (130-400) K/uL MPV 8.5 L (9.4-12.4) fL Immature Gran % (Auto) 1.1 % Neut % (Auto) 74.0 % Lymph % (Auto) 13.1 % [place] % (Auto) 9.4 % Eos % (Auto) 1.9 % Baso % (Auto) 0.5 % Neut # (Auto) 8.87 H (1.40-6.50) K/uL Lymph # (Auto) 1.57 (1.20-3.40) K/uL [place] # (Auto) 1.13 H (0.11-0.59) K/uL Eos # (Auto) 0.23 (0.00-0.50) K/uL Baso # (Auto) 0.06 (0.00-0.20) K/uL Immature Gran # (Auto) 0.13 (0.01-0.20) K/uL PT 10.6 (9.0-12.0) Seconds INR 1.0 (0.9-1.1) APTT 25 (21-31) Seconds PTT Ratio 0.9 Sodium 134 L (136-145) mmol/L Potassium 4.6 (3.5-5.1) mmol/L Chloride 102 (98-107) mmol/L Carbon Dioxide 24 (21-32) mmol/L Anion Gap 8 (3-11) BUN 31 H (6-23) mg/dl Creatinine 1.50 H (0.6-1.4) mg/dl Est Cr Clr Drug Dosing 40.8 ml/min Est GFR ( Amer) 48.5 ml/min Est GFR (Non-Af Amer) 41.9 ml/min BUN/Creatinine Ratio 20.7 H (10-20) Glucose 98 (70-99(Fasting)) mg/dl Calcium 9.0 (8.6-10.3) mg/dl Magnesium 2.0 (1.7-2.4) mg/dl Total Bilirubin 0.5 (0.2-1.0) mg/dl AST 32 (13-39) U/L ALT 50 (7-52) U/L Alkaline Phosphatase 63 (34-104) U/L Troponin I High Sens 22.2 H 22.9 H (0-20) pg/ml Total Protein 7.4 (6.0-8.3) gm/dl Albumin 4.1 (3.4-5.0) gm/dl Globulin 3.3 (2.5-4.0) gm/dl Albumin/Globulin Ratio 1.2 (0.9-2) Lipase 43 (11-82) U/L TSH 6.730 H (0.300-4.500) uIu/ml Free T4 1.06 (0.61-1.60) ng/dl Imaging Data Attestation: I personally reviewed and interpreted this imaging study as follows: My Impression: 1 view chest x-ray was obtained in the emergency department. My interpretation is cardiomegaly, final report below. Radiologist's Impression: Chest X-Ray 02/24/24 12:14 XR chest 1V portable CLINICAL HISTORY: Chest pain, nonspecific COMPARISON STUDY: Chest radiograph January 24, 2024. FINDINGS: Bilateral shoulder arthroplasties are incidentally noted. Interval median sternotomy. There are mediastinal surgical clips. Cardiomegaly is again noted. There is no evidence for pulmonary edema. Suspected trace left pleural effusion. No consolidation to suggest pneumonia. IMPRESSION: 1. Trace left pleural effusion. 2. Cardiomegaly without evidence for pulmonary edema. ACT 112: Negative or not required by law. Electronically signed by: Tirso Daugherty M.D. 02/24/2024 1:03 PM Discharge Plan Visit Data Chief Complaint: Chest Pain Stated Complaint: CHEST PAIN ED Provider: Artemio Araujo Discharge Problem: Chest pain, Abnormal EKG, Elevated troponin I level Patient Disposition: Admitted As Inpatient Discharge Instructions Interventions: ED Discharge Assessment Last Done: 02/24/24 16:09 Discharge Problem: Chest pain Qualifiers: Chest pain type: unspecified Qualified Code(s): R07.9 - Chest pain, unspecified
[2024-02-24 12:42] LABS: Basophils # (auto) 0.06 K/uL (0.00-0.20); Basophils % (auto) 0.5 %; Eosinophils # (auto) 0.23 K/uL (0.00-0.50); Eosinophils % (auto) 1.9 %; Hematocrit (blood only) 35.4 % (42.0-52.0); Hemoglobin 11.6 g/dl (14.0-18.0); Immature Granulocytes # (auto) 0.13 K/uL (0.01-0.20); Immature Granulocytes % (auto) 1.1 %; Lymphocytes # (auto) 1.57 K/uL (1.20-3.40); Lymphocytes % (auto) 13.1 %; Mean Corpuscular Hgb Conc 32.8 g/dL (32.0-36.0); Mean Corpuscular Volume 91.5 fL (80.0-100.0); Mean Platelet Volume 8.5 fL (9.4-12.4); Monocytes # (auto) 1.13 K/uL (0.11-0.59); Monocytes % (auto) 9.4 %; Neutrophils # (auto) 8.87 K/uL (1.40-6.50); Platelet Count 385 K/uL (130-400); RDW Coefficient of Variation 14.3 % (11.5-14.5); RDW Standard Deviation 47.9 fL (36.4-46.3); Red Blood Count 3.87 M/uL (4.70-6.10); White Blood Count 11.99 K/ul (4.8-10.8)
[2024-02-24 12:54] LABS: Albumin Globulin Ratio 1.2 (0.9-2); Albumin Level 4.1 gm/dl (3.4-5.0); BUN Creatinine Ratio 20.7 (10-20); Bilirubin,Total 0.5 mg/dl (0.2-1.0); Creatinine Clr Calc Pharmacy 40.8 ml/min; Est GFR (African American) 48.5 ml/min; Est GFR (Non-African American) 41.9 ml/min; Globulin 3.3 gm/dl (2.5-4.0); Potassium 4.6 mmol/L (3.5-5.1); Total Protein 7.4 gm/dl (6.0-8.3)
[2024-02-24 12:57] LABS: Troponin I High Sensitivity 22.2 pg/ml (0-20)
--- NOTE | 2024-02-24 13:05 | XRay Report ---
XR chest 1V portable CLINICAL HISTORY: Chest pain, nonspecific COMPARISON STUDY: Chest radiograph January 24, 2024. FINDINGS: Bilateral shoulder arthroplasties are incidentally noted. Interval median sternotomy. There are mediastinal surgical clips. Cardiomegaly is again noted. There is no evidence for pulmonary nettie a. Suspected trace left pleural effusion. No consolidation to suggest pneumonia. IMPRESSION: 1. Trace left pleural effusion. 2. Cardiomegaly without evidence for pulmonary edema. ACT 112: Negative or not required by law. Electronically signed by: Tirso Daugherty M.D. 02/24/2024 1:03 PM
[2024-02-24 13:10] LABS: Partial Thromboplastin Ratio 0.9; Partial Thromboplastin Time 25 Seconds (21-31); Prothrombin Time 10.6 Seconds (9.0-12.0)
[2024-02-24 15:10] LABS: Troponin I High Sensitivity 22.9 pg/ml (0-20)
--- NOTE | 2024-02-24 16:00 | History & Physical Report ---
Date of Service February 24, 2024 Assessment & Plan (1) Chest pain: Plan: Acute/stable - pt high risk 11 days postop CABG. Pain seemed to correlate with being in Afib and resolved when Afib resolved - Place in observation to PCU - Discussed case with Dr. Leung, will continue ASA, statin, and ARB - Serial HS trop, repeat level in 4 hours (~1830) - No presently on any beta blockers, will consider adding low dose Metoprolol but did have bradycardia and pauses when on beta newton for Afib at [facility]- subsequently stopped - Consult placed to Dr. Leung, appreciate assistance - Update 2D echocardiogram - SL Nitro 0.4mg PRN chest pain ordered (2) Paroxysmal atrial fibrillation: Plan: Acute/new onset post-operatively - Mag 2.0 and Potassium 4.6 - Updated echocardiogram as noted above - Check TSH w/ reflex FT4 - Add Eliquis 2.5mg BID d/t age and creatinine >/=1.50 - Reviewed with tele machine load clerk, no afib noted on monitor - Consider adding low dose beta newton therapy as above (3) Stage 3b chronic kidney disease: Plan: Chronic/stable - Baseline creatinine ~1.50-1.60 - Avoid nephrotoxic meds and renally adjust meds when needed - AM labs ordered (4) Hypertension: Plan: Chronic/stable - BP well controlled - Continue Losartan and Amlodipine - May need to adjust Amlodipine (reduce to 5mg daily) to allow room for BB therapy Plan DVT ppx will be covered with addition of Eliquis. Discussed code status with patient and , would want to be a full code to "try" and revive him in the event of cardiopulmonary arrest. Plan discussed with Dr. Mccormack who will also see and evaluate this patient. Further orders will be implemented as per attending. History of Present Illness Chief Complaint: Chest pain Primary Care Provider: Reed Gaitan MD Cristian Infante is an 83 yo M with a pmhx of multivessel CAD who is 11 days post op 3-vessel CABG at [facility] who presents today c/o substernal chest pain/burning. He reports that shortly after he ate breakfast around 11am he developed substernal chest burning which he thought was indigestion. He had a piece of toast with peanut butter and jelly for breakfast and two cups of decaffeinated coffee. When the discomfort started, he took a Nexium tablet and he had his prescribed Pepcid with his other morning medications. Despite Nexium the pain did not improve, and he subsequently notified his who gave him a sublingual nitroglycerin tablet and called EMS. Upon arrival, EMS noted that he was in atrial fibrillation. He did confirm that he had a post-op episode of afib while in the hospital that was corrected with IV Amiodarone. He was medicated pre-hospital with 4 baby aspirin. Upon arrival and assessment by the ER physician, his chest discomfort had completely resolved. He follows locally with Dr. Leung and was scheduled to see him in follow up on Tuesday. He is currently laying in bed, accompanied by family, has no complaints of cp or dyspnea. His ER w/u demonstrated some subtle T wave inversion in lead I and aVL but not in V5/6. His HS trop was 22.9. Case d/w Dr. Leung, he will be placed under observation to medicine with consult to cardiology for further care. Allergies Allergy/AdvReac Type Severity Reaction Status Date / Time MARILEE Inhibitors AdvReac Mild cough Verified 01/24/24 14:23 Home Medications Medication Instructions Recorded Confirmed Type atorvastatin 20 mg tablet (Lipitor) 20 mg PO QPM 05/15/18 01/24/24 History donepezil 10 mg tablet (Aricept) 10 mg PO HS 05/15/18 01/24/24 History levothyroxine 50 mcg tablet 50 mcg PO QAM 05/15/18 01/24/24 History (Synthroid) aspirin 81 mg tablet,delayed 81 mg PO QPM 01/22/21 01/24/24 History release nitroglycerin 0.4 mg sublingual 0.4 mg sublingual Q5M PRN chest 03/22/22 01/24/24 Rx tablet (Nitrostat) pain #25 tabs acetaminophen 500 mg tablet 1,000 mg PO QID PRN Pain 04/14/22 01/24/24 History (Tylenol Extra Strength) fluoxetine 40 mg capsule 40 mg PO DAILY 01/10/24 01/24/24 History cholecalciferol (vitamin D3) 125 125 mcg PO 3XWK 01/24/24 01/24/24 History mcg (5,000 unit) tablet (Vitamin D3) meloxicam 15 mg tablet 15 mg PO QPM 01/24/24 01/24/24 History amlodipine 10 mg tablet 10 mg PO DAILY #30 tabs 01/26/24 Rx famotidine 20 mg tablet 20 mg PO DAILY 02/24/24 02/24/24 History furosemide 40 mg tablet 40 mg PO DAILY 02/24/24 02/24/24 History losartan 50 mg tablet 100 mg PO DAILY 02/24/24 History potassium chloride 20 mEq 20 meq PO DAILY 02/24/24 02/24/24 History tablet,extended release Past Med/Surg History Problem List (Updated 02/24/24 @ 16:13 by Park Mireles PA-C) Paroxysmal atrial fibrillation Elevated troponin I level (Acute) Abnormal EKG (Acute) Chest pain (Acute) Sleep apnea CPAP Unstable angina PAC (premature atrial contraction) Fatigue Fecal incontinence Trochanteric bursitis, right hip CAD (coronary artery disease) Abnormal stress echocardiogram Chest heaviness Trochanteric bursitis, left hip Bilateral lumbar radiculopathy Degenerative disc disease, lumbar Sensorineural hearing loss (SNHL) of both ears COVID-19 virus antibody negative (Acute) Leg pain Right hip pain Lumbar facet joint syndrome (Chronic) Rotator cuff arthropathy of left shoulder (Chronic) Mild heartburn (Chronic) occassional Vitamin D deficiency Hyperlipidemia Hypertension Secondary hyperparathyroidism of renal origin 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 Helton Medical History PAC (premature atrial contraction) follows with Luiz Alvarado Anxiety and depression History of prostate cancer sx Acid reflux Sensorineural hearing loss (SNHL) of both ears Lumbar stenosis with neurogenic claudication Hypoglycemia no diabetes Osteoarthritis Hypothyroidism Surgical History History of incision and drainage (~07/06/18) left shoulder H/O shoulder surgery L reverse total shoulder on 06/16/18 glidescope 3 #7.5 ETT used for intubation without issues Hx of tonsillectomy History of colostomy reversal History of colostomy 2/2 bowel perf during colonoscopy History of bilateral knee arthroplasty History of arthroplasty r shoulder/partial Hx of colonoscopy Hx of prostatectomy Family History Daughter Family history of diabetes mellitus Other No family history of adverse response to anesthesia Social History Smoking Status: Never smoker Second Hand Exposure: No; Do You Dip or Chew Tobacco: No; Tobacco Cessation Education Requested by Patient: No Hx Alcohol Use: No Hx Substance Use: No Preferred Language: Cantonese Estonian Communication Ability: Effective Visual Impairment: Limited Hearing Ability: Normal National Secretary Required: Voice Beliefs That Will Affect Care: None marital status: Current Living Situation: Spouse Other Information That Helps Us Care for You: No Feels Safe at Home: Yes Safety Concerns: Feels Safe At This Time Assistive Devices: CPAP Review of Systems 2 Review of Systems: All systems reviewed and are unremarkable except as noted in HPI and below. Denies fever, chills, fatigue, headache, nasal congestion, sore throat, cough, shortness of breath, palpitations, orthopnea, PND, abdominal pain, n/v/d, constipation, dysuria, hematuria, frequency, back pain, joint pain or swelling, easy bruising or bleeding, skin lesions or rashes. Physical Exam 2 Physical Exam: GENERAL: 83 yo well-nourished elderly WM. NAD. EYES: EOMI. PERRLA. Anicteric. HENT: Moist mucous membranes. No scleral icterus. No cervical lymphadenopathy. LUNGS: Clear to auscultation bilaterally. No accessory muscle use. No W/R/R. CARDIOVASCULAR: Regular rate and rhythm. ABDOMEN: Soft, non-tender and non-distended. No palpable masses. Bowel sounds normoactive x 4 quad. EXTREMITIES: No edema. Non-tender. Peripheral pulses +2/4. NEUROLOGIC: A&O x3. No focal neurological deficits. CN II-XII grossly intact. PSYCHIATRIC: Cooperative. Appropriate mood and affect. SKIN: Warm, dry, intact. No rashes or lesions. postop incisions appears healing well w/o redness, bleeding or drainage. Results & Data Results & Data Vital Signs (Past 12 Hours) Vital Signs Temp Pulse Pulse Resp BP BP Pulse Ox 02/24/24 15:35 78 02/24/24 14:33 70 17 96 02/24/24 14:30 141/69 H 02/24/24 14:30 141/69 H 02/24/24 14:09 71 18 95 02/24/24 14:00 72 15 167/83 H 94 02/24/24 13:23 70 17 162/76 H 96 02/24/24 12:18 98 02/24/24 12:18 98 02/24/24 12:18 36.7 C 78 17 145/63 H 98 O2 Del Method O2 Flow Rate 02/24/24 15:35 02/24/24 14:33 02/24/24 14:30 02/24/24 14:30 02/24/24 14:09 02/24/24 14:00 02/24/24 13:23 Room Air 02/24/24 12:18 Room Air 0 02/24/24 12:18 Room Air 02/24/24 12:18 Room Air Laboratory Results 02/24/24 12:15 02/24/24 12:15 Diagnostic Findings Chest X-Ray 02/24/24 12:14 XR chest 1V portable CLINICAL HISTORY: Chest pain, nonspecific COMPARISON STUDY: Chest radiograph January 24, 2024. FINDINGS: Bilateral shoulder arthroplasties are incidentally noted. Interval median sternotomy. There are mediastinal surgical clips. Cardiomegaly is again noted. There is no evidence for pulmonary edema. Suspected trace left pleural effusion. No consolidation to suggest pneumonia. IMPRESSION: 1. Trace left pleural effusion. 2. Cardiomegaly without evidence for pulmonary edema. ACT 112: Negative or not required by law. Electronically signed by: Tirso Daugherty M.D. 02/24/2024 1:03 PM ECG Additional Comments: NSR with T wave inversion in lead I and aVL. Code Status & VTE Plan VTE Prophylaxis Plan VTE Prophylaxis will be ordered: Yes Supervising Physician Co-Signing Physician Notes PA Supervision Note: I personally saw and examined the patient. I verified all urrutia points and agree with LAWSON Mireles with the following exceptions and/or additions: S-Pt seen after admission and doing well now, no further CP since converted to NSR. No leg swelling, fevers/chills, or SOB. Has had low appetite since surgery, is moving bowels but had a loose stool this AM. History and ROS reviewed otherwise as above O- Vitals reviewed Gen: [AAOx3, NAD] HEENT: [anicteric sclerae, EOMI] CV: [RRR no mgr nl S1S2,chest w/ sternotomy scar with scab] Pulm: [CTAB no wcr] Abd: [+BS soft NT ND no masses or hernias] Ext: [no edema, right leg scab from vein harvest, with hematoma right posterior and medial thigh] CBC, BMP, ECG reviewed A/P-83 yo male 11 days s/p CABG here with chest pain and rapid afib to the 110s that spontaneously converted to NSR. Trend trop, check ECHO Consult Cardio to see about possible treatment for afib-perhaps amiodarone given so symptomatic despite rates only 90-110s PG Care Time/CCT Total # of Minutes Spent Total Time Spent with Patient: Total time spent is greater than 50% in coordination of care (as documented) at patient's floor/unit and/or counseling patient: 75 minutes including face to face, review of chart, labs, medications, documentation in ehr, writing orders, discussing care with other medical providers including Dr. Leung and Dr. Araujo. Coding Level of Care Code 92942 INT INP/OBS CARE 3/75MIN Diagnoses Chest pain R07.9 Chest pain type: unspecified Paroxysmal atrial fibrillation I48.0 Stage 3b chronic kidney disease N18.32 Hypertension, unspecified type I10 Hypertension type: unspecified (1) Chest pain Chest pain type: unspecified Qualified Code(s): R07.9 - Chest pain, unspecified (4) Hypertension Hypertension type: unspecified Qualified Code(s): I10 - Essential (primary) hypertension
[2024-02-24] MEDS ORDERED: ACETAMINOPHEN 325 MG TAB PO PRN (16:55)
[2024-02-24] MEDS ORDERED: ALUMINUM/MAGNESIUM SUSP 30 ML UDC PO PRN (16:55)
[2024-02-24] MEDS ORDERED: NITROGLYCERIN SL 0.4 MG/TAB TAB SL PRN (16:55)
[2024-02-24] MEDS ORDERED: ONDANSETRON INJ 2 MG/ML 2 ML VIAL IV PRN (16:55)
[2024-02-24] MEDS ORDERED: MAGNESIUM HYDROXIDE SUSP 30 ML UDC PO PRN (16:55)
[2024-02-24 18:02] LABS: Thyroid Stimulating Hormone 6.73 uIu/ml (0.300-4.500)
[2024-02-24 18:36] LABS: T4 Free Thyroxine 1.06 ng/dl (0.61-1.60)
[2024-02-24] MEDS: DONEPEZIL HCL 10 MG TAB PO SCH (19:52)
[2024-02-24] MEDS: APIXABAN 2.5 MG TAB PO SCH (19:53)
[2024-02-24] MEDS: ASPIRIN 81 MG ECTAB PO SCH (19:53)
[2024-02-24] MEDS: ATORVASTATIN 20 MG TAB PO SCH (19:53)
--- NOTE | 2024-02-24 23:20 | Electrocardiogram Report ---
Test Reason : Blood Pressure : / mmHG Vent. Rate : 080 BPM Atrial Rate : 080 BPM P-R Int : 192 ms QRS Dur : 082 ms QT Int : 398 ms P-R-T Axes : 019 008 062 degrees QTc Int : 459 ms Sinus rhythm with Premature atrial complexes Inferior infarct (cited on or before 24-FEB-2024) Anterior infarct , age undetermined Nonspecific T wave abnormality Abnormal ECG When compared with ECG of 25-JAN-2024 16:22, Premature atrial complexes are now Present [place] interval has decreased Anterior infarct is now Present T wave inversion no longer evident in Inferior leads Nonspecific T wave abnormality now evident in Lateral leads Confirmed by Dat Camacho ([id number]) on 02/24/2024 11:19:59 PM Referred By: Confirmed By:Dat Camacho
[2024-02-25] MEDS: LEVOTHYROXINE SODIUM 50 MCG TABLET PO SCH (06:07)
[2024-02-25 07:00] LABS: Basophils # (auto) 0.07 K/uL (0.00-0.20); Basophils % (auto) 0.6 %; Eosinophils # (auto) 0.21 K/uL (0.00-0.50); Eosinophils % (auto) 1.7 %; Hematocrit (blood only) 33.4 % (42.0-52.0); Hemoglobin 10.8 g/dl (14.0-18.0); Immature Granulocytes # (auto) 0.12 K/uL (0.01-0.20); Lymphocytes # (auto) 1.81 K/uL (1.20-3.40); Lymphocytes % (auto) 15.1 %; Mean Corpuscular Hemoglobin 29.9 pg (25.0-34.0); Mean Corpuscular Hgb Conc 32.3 g/dL (32.0-36.0); Mean Corpuscular Volume 92.5 fL (80.0-100.0); Mean Platelet Volume 8.6 fL (9.4-12.4); Monocytes # (auto) 0.95 K/uL (0.11-0.59); Monocytes % (auto) 7.9 %; Neutrophils # (auto) 8.86 K/uL (1.40-6.50); Neutrophils % (auto) 73.7 %; Platelet Count 390 K/uL (130-400); RDW Coefficient of Variation 13.9 % (11.5-14.5); RDW Standard Deviation 47.3 fL (36.4-46.3); Red Blood Count 3.61 M/uL (4.70-6.10); White Blood Count 12.02 K/ul (4.8-10.8)
[2024-02-25 07:19] LABS: BUN Creatinine Ratio 18.9 (10-20); Calcium 8.8 mg/dl (8.6-10.3); Creatinine Clr Calc Pharmacy 33.4 ml/min; Est GFR (African American) 40.3 ml/min; Est GFR (Non-African American) 34.7 ml/min; Magnesium 1.9 mg/dl (1.7-2.4); Potassium 4.5 mmol/L (3.5-5.1)
[2024-02-25] MEDS: amLODIPine BESYLATE 5 MG TAB PO SCH (07:55)
[2024-02-25] MEDS: POTASSIUM CHLORIDE CRTAB 20 MEQ TABCR PO SCH (07:55)
[2024-02-25] MEDS: LOSARTAN POTASSIUM 25 MG TAB PO SCH (07:55)
[2024-02-25] MEDS: FLUoxetine HCL 20 MG CAP PO SCH (07:56)
[2024-02-25] MEDS: FAMOTIDINE 20 MG TAB PO SCH (07:56)
[2024-02-25] MEDS: FUROSEMIDE 40 MG TAB PO SCH (07:56)
[2024-02-25] MEDS ORDERED: METOPROLOL SUCC 25MG EXT REL TAB PO SCH (09:00)
--- NOTE | 2024-02-25 09:58 | XCELERA ---
[id number] \\[id number]
--- NOTE | 2024-02-25 13:08 | Discharge Summary ---
Discharge Summary Date of Service February 25, 2024 Principal Dx & Hospital Course #1 = Principal Diagnosis (1) Chest pain: P/w CP that felt like indigestion, pt high risk 11 days postop CABG. Pain seemed to correlate with being in Afib and resolved when Afib resolved Serial troponins , not c/w ACS He was placed on tele and had NSR with rates in the 70s after admission Seen by Cardiology and decision made to give prn dose of metoprolol 12.5mg only for future episodes of Afib at home given that he had bradycardia into th 40s on beta newton when he had post op afib at [facility] after CABG Start Eliquis Has close f/u already planned on Tuesday with Cardiology ECHO mild LVH, RV borderline dilated, normal EF, no WMAs (2) Paroxysmal atrial fibrillation: Acute/new onset post-operatively and again this admission pre-hospital, brief x 2 hours, spontaneously converted Strips from EMS not available for review - Mag 2.0 and Potassium 4.6 - Updated echocardiogram as noted above - TSH mildly elevated at 6 but normal FT4-follow as outpt - Added Eliquis 2.5mg BID d/t age and creatinine >/=1.50 - adding low dose beta newton therapy as above for prn use (3) CAD (coronary artery disease): s/p CABG recently continue ASA, statin (4) Stage 3b chronic kidney disease: Chronic/stable - Baseline creatinine ~1.50-1.60 - Avoid nephrotoxic meds and renally adjust meds when needed - 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 Discussed code status with patient and , would want to be a full code to "try" and revive him in the event of cardiopulmonary arrestDispo-doing well, stable for dc to home Discussed care with Dr. Ray of Cardiology on day of discharge Notes For Next Care Provider Check CBC, BMP, TSH in 1-2 weeks Medication Changes From Visit added metoprolol succinate 12.5mg po daily prn afib added Eliquis 2.5mg po bid Stopped meloxicam Admission HPI Per Admitting Provider Cristian Infante is an 83 yo M with a pmhx of multivessel CAD who is 11 days post op 3-vessel CABG at [facility] who presents today c/o substernal chest pain/burning. He reports that shortly after he ate breakfast around 11am he developed substernal chest burning which he thought was indigestion. He had a piece of toast with peanut butter and jelly for breakfast and two cups of decaffeinated coffee. When the discomfort started, he took a Nexium tablet and he had his prescribed Pepcid with his other morning medications. Despite Nexium the pain did not improve, and he subsequently notified his who gave him a sublingual nitroglycerin tablet and called EMS. Upon arrival, EMS noted that he was in atrial fibrillation. He did confirm that he had a post-op episode of afib while in the hospital that was corrected with IV Amiodarone. He was medicated pre-hospital with 4 baby aspirin. Upon arrival and assessment by the ER physician, his chest discomfort had completely resolved. He follows locally with Dr. Leung and was scheduled to see him in follow up on Tuesday. He is currently laying in bed, accompanied by family, has no complaints of cp or dyspnea. His ER w/u demonstrated some subtle T wave inversion in lead I and aVL but not in V5/6. His HS trop was 22.9. Case d/w Dr. Leung, he will be placed under observation to medicine with consult to cardiology for further care. Discharge Exam Constitutional WD/WN, vitals as above Respiratory normal respiratory effort, lungs clear to auscultation Cardiovascular RRR, no murmur, no edema Skin midline sternotomy wound healing well, scab in place, no erythema or drainage Updated Medication List Medication Instructions Recorded Confirmed Type atorvastatin 20 mg tablet (Lipitor) 20 mg PO QPM 05/15/18 01/24/24 History donepezil 10 mg tablet (Aricept) 10 mg PO HS 05/15/18 01/24/24 History levothyroxine 50 mcg tablet 50 mcg PO QAM 05/15/18 01/24/24 History (Synthroid) acetaminophen 500 mg tablet 1,000 mg PO QID PRN Pain 04/14/22 01/24/24 History (Tylenol Extra Strength) fluoxetine 40 mg capsule 40 mg PO DAILY 01/10/24 01/24/24 History cholecalciferol (vitamin D3) 125 125 mcg PO 3XWK 01/24/24 01/24/24 History mcg (5,000 unit) tablet (Vitamin D3) amlodipine 10 mg tablet 10 mg PO DAILY #30 tabs 01/26/24 Rx apixaban 2.5 mg tablet (Eliquis) 2.5 mg PO BID #60 tabs 02/25/24 Rx losartan 50 mg tablet 75 mg (1.5 x 50 mg) PO DAILY #45 02/25/24 Rx tabs nitroglycerin 0.4 mg sublingual 0.4 mg sublingual Q5M PRN chest 02/25/24 Rx tablet (Nitrostat) pain #25 tabs esomeprazole magnesium 20 mg 20 mg PO DAILY 02/27/24 02/27/24 History capsule,delayed release (Nexium) metoprolol tartrate 25 mg tablet 25 mg PO Q12H PRN atrial 02/27/24 02/27/24 Rx fibrillation #30 tabs Hospital Stay Data Consultations 02/24/24 15:14 ED Decision to Admit Stat 02/24/24 16:55 Consult Cardiology Routine Diagnostic Imagining Performed ECHO CXR Pending Results Patient Have Any Pending Studies at Discharge: No Discharge Instructions Given to Patient (Per Discharging Provider) You were admitted with chest pain that occurred with a suspected episode of atrial fibrillation (although this was unable to be confirmed directly here by our Cloth Hand/Hospitalist). This resolved on its own and then your chest discomfort also resolved. You had an echocardiogram and workup for heart attack and all looked well. 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 You will be started on Eliquis as a blood thinner to prevent stroke associated with atrial fibrillation. If you have any issues with bleeding, or if you fall and hit your head, please return to the hospital right away. You will also be given a prescription for a low dose of metoprolol to take only if you feel the symptoms of atrial fibrillation coming on again in the future. You should not take meloxicam now that you are on Eliquis as they are both blood thinners. You can take acetaminophen as needed for pains. Keep your follow up with Dr. Leung on Tuesday as planned. You can discuss with rory canchola at that time when it is ok for you to discontinue the lasix and potassium as we discussed. Please check your heart rate and blood pressure 2 times a day and notify your doctor if your numbers/readings are too high or too low as we discussed. Please have your PCP recheck your thyroid function and kidney function, as well as a complete blood count in 1 week to ensure all is back to normal (as we had also discussed). Total Time Total Time Spent Total Time Spent (In Minutes): 45 min Total Time Includes: Examination of the Patient, Discharge Planning, Medication Reconciliation and Communication With Other Providers Coding Level of Care Code 73568 INP/OBS DISCH >30 MIN Diagnoses Chest pain R07.9 Chest pain type: unspecified Paroxysmal atrial fibrillation I48.0 Coronary artery disease of [place] artery of [place] heart with stable angina pectoris I25.118 Associated angina: with stable angina Coronary Disease-Associated Artery/Lesion type: [place] artery [place] vs. transplanted heart: [place] heart Stage 3b chronic kidney disease N18.32 Hypertension, unspecified type I10 Hypertension type: unspecified Leukocytosis D72.829 Anemia D64.9
--- NOTE | 2024-02-25 14:53 | Cardiology Consultation ---
Date of Consultation February 25, 2024 Assessment & Plan (1) Paroxysmal atrial fibrillation: Uncertain if he had atrial fibrillation with modest heart rate elevation (90-110 bpm) or frequent PACs. Telemetry here was benign overnight and there is a concern about bradycardia so beta-newton was not initiated. However, recommend discharge with metoprolol succinate 25 mg tablets with instructions to take 1/2 pill if he notes elevated heart rate or similar symptoms to those which prompted this admission. There are family members with medical backgrounds that can help monitor his hemodynamics in the near term. Continue apixaban 2.5 mg twice daily for thromboembolic prophylaxis as well as aspirin 81 mg daily given recent CABG. (2) Chest pain: No ST deviation on ECG and troponin was only minimally above reference range. Given his recent revascularization, should not have significant myocardium at risk, likely had minor demand ischemia from transient tachycardia. (3) S/P CABG x 3: Markedly reduced risk for major coronary event given his recent revascularization. (4) H/O sinus bradycardia: As noted, beta-blockers were discontinued during his CABG hospitalization due to bradycardia, therefore not restarted but will have beta-newton available for PRN use. Patient does have follow-up with Colin Leung in 2 days time. History of Present Illness Reason for Consultation: chest pain, afib Requesting Physician: Cass Mccormack MD Attending Physician: Cass Mccormack MD History of Present Illness 83-year-old man with CAD (status post off-pump CABG 02/14/2024 with VALDEZ to LAD, SVGOM, SVGPDA), paroxysmal atrial fibrillation (noted perioperatively at time of CABG with subsequent bradycardia prompting discontinuation of beta-newton), who was admitted 02/24/2024 after an episode of chest discomfort with EMS evaluation showing transient atrial fibrillation with borderline tachycardia (90-110 bpm). At the time of his ER evaluation, his rhythm had returned to sinus at 80 bpm and his symptoms had resolved. He did receive a single sublingual nitroglycerin at home with no change in his mild chest/epigastric discomfort. Upon arrival in the ER, his discomfort had resolved. Of note, the actual EMS tracing of his atrial fibrillation was not readily available. Uneventful night, no symptoms subsequent to his presenting transient discomfort. At the time of my evaluation this morning, he denied any chest discomfort, dyspnea, palpitations, or lightheadedness. Telemetry showed sinus rhythm at 60- 70 bpm. Allergies Allergy/AdvReac Type Severity Reaction Status Date / Time MARILEE Inhibitors AdvReac Mild cough Verified 01/24/24 14:23 Home Medications Medication Instructions Recorded Confirmed Type atorvastatin 20 mg tablet (Lipitor) 20 mg PO QPM 05/15/18 01/24/24 History donepezil 10 mg tablet (Aricept) 10 mg PO HS 05/15/18 01/24/24 History levothyroxine 50 mcg tablet 50 mcg PO QAM 05/15/18 01/24/24 History (Synthroid) aspirin 81 mg tablet,delayed 81 mg PO QPM 01/22/21 01/24/24 History release acetaminophen 500 mg tablet 1,000 mg PO QID PRN Pain 04/14/22 01/24/24 History (Tylenol Extra Strength) fluoxetine 40 mg capsule 40 mg PO DAILY 01/10/24 01/24/24 History cholecalciferol (vitamin D3) 125 125 mcg PO 3XWK 01/24/24 01/24/24 History mcg (5,000 unit) tablet (Vitamin D3) amlodipine 10 mg tablet 10 mg PO DAILY #30 tabs 01/26/24 Rx famotidine 20 mg tablet 20 mg PO DAILY 02/24/24 02/24/24 History furosemide 40 mg tablet 40 mg PO DAILY 02/24/24 02/24/24 History potassium chloride 20 mEq 20 meq PO DAILY 02/24/24 02/24/24 History tablet,extended release apixaban 2.5 mg tablet (Eliquis) 2.5 mg PO BID #60 tabs 02/25/24 Rx losartan 50 mg tablet 75 mg (1.5 x 50 mg) PO DAILY #45 02/25/24 Rx tabs metoprolol succinate 25 mg 12.5 mg (1/2 x 25 mg) PO DAILY PRN 02/25/24 Rx tablet,extended release 24 hr atrial fibrillation #15 tabs (Toprol XL) nitroglycerin 0.4 mg sublingual 0.4 mg sublingual Q5M PRN chest 02/25/24 Rx tablet (Nitrostat) pain #25 tabs Patient History Medical History Secondary hyperparathyroidism Prosthetic joint infection MSSA (methicillin susceptible Staphylococcus aureus) infection Memory deficit following other cerebrovascular disease Major depressive disorder, single episode, unspecified ED (erectile dysfunction) PAC (premature atrial contraction) follows with Kisue Jenny Anxiety and depression History of prostate cancer sx Acid reflux Sensorineural hearing loss (SNHL) of both ears Lumbar stenosis with neurogenic claudication Hypoglycemia no diabetes Osteoarthritis Hypothyroidism Surgical History Hx of CABG History of incision and drainage (~07/06/18) left shoulder H/O shoulder surgery L reverse total shoulder on 06/16/18 glidescope 3 #7.5 ETT used for intubation without issues Hx of tonsillectomy History of colostomy reversal History of colostomy 2/2 bowel perf during colonoscopy History of bilateral knee arthroplasty History of arthroplasty r shoulder/partial Hx of colonoscopy Hx of prostatectomy Family History Daughter Family history of diabetes mellitus Other No family history of adverse response to anesthesia Social History Smoking Status: Never smoker Second Hand Exposure: No; Do You Dip or Chew Tobacco: No; Hx Alcohol Use: No Hx Substance Use: No Preferred Language: Sitesimon Communication Ability: Effective Visual Impairment: Limited Hearing Ability: Normal Income Tax Consultant Required: Voice Beliefs That Will Affect Care: None marital status: Current Living Situation: Spouse Feels Safe at Home: Yes Assistive Devices: CPAP Physical Exam Physical Exam: No distress. Afebrile. BP 115/71 mmHg. Pulse 70 bpm and regular. Respirations 18 and unlabored. Skin: no ecchymoses or generalized lesions. HEENT: unremarkable. Neck: JVP at the clavicle at 90 degrees, no carotid bruits. Lungs: clear. Cardiac: regular rhythm, normal S1-2, no murmur. Abdomen: benign. Extremities: no edema, pulses intact. Neurologic: normal affect and conversation, nonfocal. Results & Data Vital Signs (Past 12 Hours) Vital Signs Temp Pulse Pulse Resp BP BP Pulse Ox 02/25/24 12:14 97.3 F L 82 18 115/71 97 02/25/24 09:12 98.6 F 82 18 129/62 136/78 96 02/25/24 08:00 02/25/24 07:54 98.6 F 82 18 136/78 96 02/25/24 07:00 70 02/25/24 03:48 98.2 F 80 17 156/67 H 93 O2 Del Method 02/25/24 12:14 Room Air 02/25/24 09:12 02/25/24 08:00 Room Air 02/25/24 07:54 Room Air 02/25/24 07:00 02/25/24 03:48 Room Air Laboratory Results Troponin values were 22, 22, and 18. Sodium 134, BUN 33, creatinine 1.75. Normal potassium and magnesium. Diagnostic Findings ECG on admission showed sinus rhythm at 80 bpm with occasional PACs, old a nterior infarct and nonspecific T wave flattening. Compared with 01/25/2024 ECG, PACs were now seen and poor R wave progression was noted. Chest x-ray showed trace left pleural effusion and cardiomegaly with no evidence of pulmonary edema. Echocardiogram today showed EF 55 to 60% with mild LVH and normal wall motion, borderline dilated RV with normal systolic function, no significant valvular disease on technically limited Doppler. Compared to 01/26/2024 study, previous no wall motion abnormalities no longer apparent, otherwise no significant change. PG Care Time/CCT Total # of Minutes Spent Total Time Spent with Patient: Total time spent is greater than 50% in coordination of care (as documented) at patient's floor/unit and/or counseling patient: Coding Level of Care Code 05024 IN/OBS CONSULT LVL 3,45M Diagnoses Paroxysmal atrial fibrillation I48.0 Chest pain R07.9 Chest pain type: unspecified S/P CABG x 3 Z95.1 H/O sinus bradycardia Z86.79 (2) Chest pain Chest pain type: unspecified Qualified Code(s): R07.9 - Chest pain, unspecified
== END 2024-02-25 13:34 | disposition home or self-care (01) ==
LOC: SUATTDRO → ED 12:05 → 2S 12:05
DX: Z95.1 Presence of aortocoronary bypass graft; I12.9 Hypertensive chronic kidney disease with stage 1 through stage 4 chronic kidney disease, or unspecified chronic kidney disease; Z79.899 Other long term (current) drug therapy; R07.2 Precordial pain; Z79.1 Long term (current) use of non-steroidal anti-inflammatories (NSAID); I25.10 Atherosclerotic heart disease of native coronary artery without angina pectoris; R94.31 Abnormal electrocardiogram [ECG] [EKG]; Z79.01 Long term (current) use of anticoagulants; D72.829 Elevated white blood cell count, unspecified; R79.89 Other specified abnormal findings of blood chemistry; I48.0 Paroxysmal atrial fibrillation; Z88.8 Allergy status to other drugs, medicaments and biological substances; Z79.82 Long term (current) use of aspirin; D64.9 Anemia, unspecified; N18.32 Chronic kidney disease, stage 3b